=== PATIENT | male | born 1950 | race Caucasian/White ===

== ENCOUNTER → 2018-02-06 | Outpatient (CLI) | payer MEDICARE ==
--- NOTE | 2018-02-06 09:31 | CT ---
EXAMINATION TYPE: CT abdomen pelvis wo con DATE OF EXAM: 02/06/2018 COMPARISON: 03/19/2016 HISTORY: 67-year-old female Kidney stones, renal colic CT DLP: 1096 mGycm. Automated exposure control for dose reduction was used. TECHNIQUE: Contiguous axial scanning of the abdomen and pelvis without IV contrast. Coronal and sagit markus reconstructions performed. FINDINGS: Heart normal size without pericardial effusion. Coronary vessel calcifications are present and are re markable for coronary artery disease. Noncontrast appearance of the liver, gallbladder, adrenal glands, spleen with a inferior splenule, an d pancreas show no gross abnormality. Multiple cysts redemonstrated within the right kidney. 3 dominant cysts are present measuring up to 4 .9 cm and show variable slight increase in size previously measuring up to 4.0 cm. Additional smaller cysts are present. Approximately 18 nonobstructing calculi are present on the right measuring up to 1.4 cm. Approximately 12 nonobstructing calculi on the left measuring up to 5 mm. No hydronephrosis or suspicious ureteral calculus. Small fatty umbilical hernia. No mesenteric or retroperitoneal lymphadenopathy. No dilated small bowel, free fluid, or free air. Normal appendix. Mild overall stool burden. Left hemicolonic diverticulosis, greatest in the sigmoid colon. No pericolonic inflammatory changes. Prostate gland measures 4.3 cm wide. No abnormal fluid collection in the pelvis or pelvic lymphadenop athy. Bones: Mild degenerative changes at the hips and SI joints. 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 IMPRESSION: 1. Bilateral nonobstructing renal calculi measuring up to 1.4 cm on the right and 5 mm on the left. 2. No hydronephrosis or obstructing ureteral calculus seen. 3. Multiple benign renal cysts measuring up to 4.9 cm showing variable slight increase in size as co mpared to 2016. 4. Distal colonic diverticulosis and tiny fatty umbilical hernia.
== END ==
LOC: RADCTMAIN 08:46
PROVIDERS: ATTEND Urology
DX: N20.0 Calculus of kidney (principal); N28.1 Cyst of kidney, acquired; K57.30 Diverticulosis of large intestine without perforation or abscess without bleeding
CPT/HCPCS: 74176

== ENCOUNTER → 2018-04-12 | Outpatient (CLI) | payer MEDICARE ==
--- NOTE | 2018-04-12 12:02 | XR ---
EXAMINATION TYPE: XR chest 2V DATE OF EXAM: 04/12/2018 COMPARISON: None HISTORY: 67-year-old male presurgical testing TECHNIQUE: Frontal and lateral views FINDINGS: Heart normal size. Aorta and pulmonary vasculature are within normal limits. No consolidation or pleu ral effusion. Mild endplate spondylosis lower thoracic spine. IMPRESSION: No acute cardiopulmonary process.
[2018-04-12 12:50] LABS: Basophils % (A) 1 %; Eosinophils # (A) 0.2 k/uL (0-0.7); Eosinophils % (A) 3 %; HGB 15.5 gm/dL (13.0-17.5); Lymphocytes # (A) 1.4 k/uL (1.0-4.8); Lymphocytes % (A) 23 %; MCV 91.1 fL (80.0-100.0); Mean Platelet Volume 6.5; Monocytes # (A) 0.4 k/uL (0-1.0); Monocytes % (A) 6 %; Neutrophils # (A) 4.2 k/uL (1.3-7.7); Neutrophils % (A) 66 %; Platelet Count 204 k/uL (150-450); RBC 5.16 m/uL (4.30-5.90); WBC 6.4 k/uL (3.8-10.6)
[2018-04-12 12:59] LABS: Albumin 4.1 g/dL (3.5-5.0); Calcium 9.4 mg/dL (8.4-10.2); Potassium 4.4 mmol/L (3.5-5.1); Total Bilirubin 0.4 mg/dL (0.2-1.3); Total Protein 6.8 g/dL (6.3-8.2)
[2018-04-12 13:02] LABS: Appearance,Urine Clear (Clear); Bilirubin,Urine Negative (Negative); Blood,Urine Small (Negative); Color,Urine Yellow; Glucose,Urine (UA) Negative (Negative); Ketones,Urine Negative (Negative); Leukocyte Esterase,Urine Negative (Negative); Mucus,Urine Rare /hpf; Nitrite,Urine Negative (Negative); Protein,Urine 1+ (Negative); RBC,Urine 18 /hpf (0-5); Specific Gravity,Urine 1.014 (1.001-1.035); Urobilinogen,Urine <2.0 mg/dL (<2.0); WBC,Urine 1 /hpf (0-5)
== END ==
LOC: LABPAT 11:27
PROVIDERS: ATTEND Urology
DX: Z01.818 Encounter for other preprocedural examination (principal); Z01.812 Encounter for preprocedural laboratory examination; I10 Essential (primary) hypertension; N20.0 Calculus of kidney; R07.9 Chest pain, unspecified; R31.29 Other microscopic hematuria
CPT/HCPCS: 36415; 71046; 80053; 81001; 85025; 86850; 86900; 86901; 87086; 93005

== ENCOUNTER 2018-04-19 06:47 | Inpatient (IN) | payer MEDICARE ==
[2018-04-13 14:47] VITALS: BMI 38.2
--- NOTE | 2018-04-18 19:00 | P.GSHP ---
History of Present Illness H&P Date: 04/18/18 67 yo male with a histroy of stones He has a large volume of stones inthe right kidney He comes for a right pcnl The risks , complications and alternatives have been discussed including failure to remove all the stones, injury to the kidney and adjacent organs. - Constitutional Constitutional: Reports chronic pain - Genitourinary (Male) Genitourinary: Reports as per HPI Past Medical History Past Medical History: CVA/TIA, Hyperlipidemia, Hypertension Additional Past Medical History / Comment(s): kidney stones TIA 1999 History of Any Multi-Drug Resistant Organisms: None Reported Past Surgical History: Hernia Repair, Joint Replacement Additional Past Surgical History / Comment(s): RIGHT Knee replacement, MANY LITHOTRIPSIES Past Anesthesia/Blood Transfusion Reactions: Previous Problems w/ Anesthesia Additional Past Anesthesia/Blood Transfusion Reaction / Comment(s): WOKE UP DURING A COUPLE SURGERIES Smoking Status: Former smoker Medications and Allergies Home Medications Medication Instructions Recorded Confirmed Type Clopidogrel [Plavix] 75 mg PO DAILY 03/19/16 04/13/18 History HYDROcodone/APAP 5-325MG [[place] 1 - 2 tab PO Q6HR PRN #14 tab 03/19/16 04/13/18 Rx 5-325] Tamsulosin HCl [Flomax] 0.4 mg PO DAILY #7 cap.er.24h 03/19/16 04/13/18 Rx Zolpidem [Ambien] 10 mg PO HS PRN 03/19/16 04/13/18 History amLODIPine [Norvasc] 10 mg PO DAILY 03/19/16 04/13/18 History Doxazosin [Cardura] 4 mg PO DAILY 04/13/18 04/13/18 History Methylphenidate HCl [Ritalin] 10 mg PO DAILY 04/13/18 04/13/18 History Allergies Allergy/AdvReac Type Severity Reaction Status Date / Time No Known Allergies Allergy Verified 04/13/18 14:35 Surgical - Exam - General well developed, well nourished, no distress - Eyes PERRL - ENT no hearing loss - Neck no masses, trachea midline - Respiratory normal expansion, normal respiratory effort - Cardiovascular Rhythm: regular - Abdomen Abdomen: soft, non tender - Genitourinary normal penis with no external lesions, testicles present - Integumentary no rash, no growths - Neurologic normal coordination, normal sensation - Musculoskeletal normal gait, normal posture - Psychiatric oriented to time, oriented to person, oriented to place, speech is normal, memory intact Results - Imaging CT scan - abdomen: report reviewed, image reviewed CT scan - pelvis: report reviewed, image reviewed Assessment and Plan Assessment: Impression: Right renal stones, large Plan: Right PCNL
[~2018-04-19 06:47] MED LIST: DEXAMETHASONE SOD PHOSPHATE 10 MG/ML 1 ML VIAL IV ONE; LIDOCAINE 1% 20 ML VIAL (10MG/ML) FOR IV START INTRADERMA PRN; MIDAZOLAM 2 MG/2 ML VIAL IV PRN; ONDANSETRON 4 MG/2 ML VIAL IVP ONE; SCOPOLAMINE 1.5MG/72HR PATCH TRANSDERM ONE; ceFAZolin IN SWFI 2 GM/20 ML SYRINGE IVP ONE
--- NOTE | 2018-04-19 07:13 | XR ---
EXAMINATION TYPE: XR KUB DATE OF EXAM: 04/19/2018 7:09 AM CLINICAL HISTORY: Right-sided nephrolithiasis TECHNIQUE: Single supine KUB image of the abdomen is obtained. COMPARISON: None. FINDINGS: There are multiple bilateral renal calculi seen. The largest on the right measures 1.7 cm a nd the largest on the left measures 9 mm. There are at least additional 10 calculi on the right and 7 calculi on the left. No dilated bowel. Osseous structures are grossly intact. IMPRESSION: Bilateral renal calculi, overall at least 11 on the right and 8 on the left.
[2018-04-19] MEDS: LACTATED RINGERS 1,000 ML IV SCH (07:49)
[2018-04-19] MEDS ORDERED: SUCCINYLCHOLINE CHLORIDE 100 MG/5 ML SYR IV ONE (09:25)
[2018-04-19] MEDS ORDERED: PROPOFOL 10 MG/ML 20 ML VIAL IV ONE (09:25)
[2018-04-19] MEDS ORDERED: ROCURONIUM BROMIDE 10 MG/ML 10 ML VIAL IV ONE (09:25)
[2018-04-19] MEDS ORDERED: GLYCOPYRROLATE 0.2 MG/ML 2 ML VIAL ONE (09:25)
[2018-04-19] MEDS ORDERED: NEOSTIGMINE 1 MG/ML 10 ML VIAL ONE (09:25)
[2018-04-19] MEDS ORDERED: ePHEDrine SULFATE/0.9% NACL/PF 50 MG/5 ML SYRINGE IV ONE (09:25)
[2018-04-19] MEDS ORDERED: MIDAZOLAM 2 MG/2 ML VIAL ONE (09:25)
[2018-04-19] MEDS ORDERED: fentaNYL (PF) 50 MCG/ML 2 ML AMP ONE (09:25)
[2018-04-19] MEDS ORDERED: LIDOCAINE 1% INJ 10MG/ML (20 ML MDV) ONE (09:25)
[2018-04-19] MEDS ORDERED: IOPAMIDOL-370 50ML BTL MISCELLANE ONE (09:44)
[2018-04-19] MEDS ORDERED: ACETAMINOPHEN TAB 325 MG TAB PO PRN (11:17)
[2018-04-19] MEDS ORDERED: ONDANSETRON 4 MG/2 ML VIAL IVP PRN (11:17)
[2018-04-19] MEDS ORDERED: MAG HYDROX/AL HYDROX/SIMETH 30 ML CUP PO PRN (11:17)
[2018-04-19] MEDS ORDERED: NALOXONE 0.4 MG/ML 1 ML VIAL IV PRN (11:18)
--- NOTE | 2018-04-19 11:24 | P.OP ---
Date of Procedure: 04/19/18 Preoperative Diagnosis: Right renal calculi, large Postoperative Diagnosis: Same Procedure(s) Performed: Cystoscopy, placement of right occluding balloon catheter, percutaneous nephrostomy (Dr. gramajo), percutaneous nephrostolithotomy with ultrasound, placement of 12 J nephrostomy tube Anesthesia: ABRAM Surgeon: Pro Miguel Estimated Blood Loss (ml): 100 Pathology: other (Stone) Condition: stable Disposition: PACU Indications for Procedure: The patient is 67. He has a large volume of stone in his right kidney. It is over 2 cm. He is having pain with this. We discussed treatment options. He comes for percutaneous nephrostolithotomy. Description of Procedure: The patient is brought to the operating suite. On the transport gurney he is given a successful general endotracheal anesthesia. Rolls were placed under his hips, he's placed in a frog leg position, a sterile prep and drape was administered. Cystoscopy with a Foroblique lens and 22-[place] sheath identifies a normal urethra. The prostate is not obstructing. The ureters are normal. The right ureteral orifice is intubated with a 5-[place] occluding balloon catheter that is passed up into the renal pelvis. The cystoscope was removed. A 16-[place] Moraes catheters introduced and secured to the ureteral catheter. The patient is then placed in a prone position on the operating table with extensive care to airways extremities and neck. Dr. Gramajo of radiology performed percutaneous access to the right lower pole calyx with the large stone present. Prior to this a sterile prep and drape had been administered. I then dilate the tract to 30-[place]. I introduced the rigid scope into the collecting system. The large stone is identified and broken up into smaller pieces with the ultrasonic lithotripter. I then pass a flexible nephroscope throughout the collecting system down the ureter and basketed several smaller fragments. I also basket a couple of non fragmented stones. He has a significant amount of papillary calcifications. At the end of the procedure there is no remaining stone fluoroscopically or endoscopically. Over the working wire a 12-[place] J nephrostomy tube was placed and secured to the skin. The working sheath is removed. The safety wires removed. The ureteral catheters removed. The patient is awakened and returned recovery room in good condition. Blood loss is approximately 100 mL.
--- NOTE | 2018-04-19 11:47 | FL ---
EXAMINATION TYPE: FL Perc Nephrostomy New Access DATE OF EXAM: 04/19/2018 COMPARISON: NONE HISTORY: Right renal stone Procedure had been discussed with the patient by Dr. Miguel, risks, benefits, alternatives, were dis cussed and any questions were answered. Informed consent was obtained. The patient was in a semipro ne position prepped and draped on the OR table in the usual sterile fashion. Utilizing a 15 cm lengt h [place] needle a single pass was made into a lower pole posterior calyx under fluoroscopic guidance. An 0.018 guidewire is passed through the needle and there was placement of a 6-[place] catheter sheat h system. There was conversion to a 0.035 system was performed with passage of a guidewire into the ureter utilizing a directional catheter. A second safety wire was placed. Remaining portion of pro cedure performed by . Approximately 10 minutes and 38 of fluoroscopy was provided. No imag es submitted. IMPRESSION: 1. Successful intraoperative right nephrostomy prior to nephrolithotomy.
[2018-04-19] MEDS: HYDROmorphone 0.5 MG/0.5 ML SYRINGE IVP PRN ×4 (11:55→12:05)
[2018-04-19] MEDS ORDERED: MEPERIDINE 50 MG/ML SYRINGE IVP ONE (12:16)
[2018-04-19] MEDS ORDERED: fentaNYL (PF) 50 MCG/ML 2 ML AMP IVP ONE (12:30)
[2018-04-19] MEDS ORDERED: SODIUM CHLORIDE 0.9% 1,000 ML IV ONE (14:47)
[2018-04-19] MEDS: DEXTROSE 5%-0.45% NACL 1,000 ML IV SCH (15:12)
[2018-04-19] MEDS: KETOROLAC 30 MG/ML 1 ML VIAL IVP SCH ×2 (15:16→17:27)
[2018-04-19] MEDS: HYDROmorphone PCA 5 MG/25 ML SYRINGE IV PRN (16:44)
[2018-04-20] MEDS: DEXTROSE 5%-0.45% NACL 1,000 ML IV SCH ×2 (00:19→07:20)
[2018-04-20] MEDS: KETOROLAC 30 MG/ML 1 ML VIAL IVP SCH ×3 (00:19→11:43)
[2018-04-20 01:45] VITALS: PULSE 69
[2018-04-20] MEDS: HYDROmorphone PCA 5 MG/25 ML SYRINGE IV PRN (03:38)
[2018-04-20] MEDS: LACTATED RINGERS 1,000 ML IV SCH (07:19)
[2018-04-20 08:43] VITALS: BP 123/66; RESP 18; TEMP 97.7
[2018-04-20] MEDS ORDERED: amLODIPine 10 MG TAB PO SCH (09:00)
[2018-04-20] MEDS ORDERED: METHYLPHENIDATE HCL 10 MG TAB PO SCH (09:00)
[2018-04-20] MEDS ORDERED: TAMSULOSIN 0.4 MG CAP.ER.24H PO SCH (09:00)
[2018-04-20] MEDS ORDERED: DOXAZOSIN 4 MG TAB PO SCH (09:00)
--- NOTE | 2018-04-20 12:03 | P.DS ---
Providers Date of admission: 04/19/18 06:47 Attending physician: Pro Miguel Primary care physician: Isauro [facility] Course: The patient was admitted yesterday 04/19/2018 for a right percutaneous nephrostolithotomy. He underwent this without difficulty. Postoperatively the patient did well. The urine is clearing nicely. He is having minimal discomfort. He is ready to be discharged home. The Moraes catheter and IV will be removed. He'll be discharged home with the nephrostomy tube. He'll follow- up in the office 04/24/2018 for nephrostomy tube removal. He has [place] at home. Postoperative instructions been given. Diet is regular. Condition is good. Patient Condition at Discharge: Good Plan - Discharge Summary Discharge Rx Participant: No New Discharge Prescriptions: No Action Zolpidem [Ambien] 10 mg PO HS PRN PRN Reason: Insomnia Clopidogrel [Plavix] 75 mg PO DAILY amLODIPine [Norvasc] 10 mg PO DAILY HYDROcodone/APAP 5-325MG [[place] 5-325] 1 - 2 tab PO Q6HR PRN #14 tab PRN Reason: Analgesia Tamsulosin HCl [Flomax] 0.4 mg PO DAILY #7 cap.er.24h Doxazosin [Cardura] 4 mg PO DAILY Methylphenidate HCl [Ritalin] 10 mg PO DAILY Discharge Medication List Clopidogrel [Plavix] 75 mg PO DAILY 03/19/16 [History] HYDROcodone/APAP 5-325MG [[place] 5-325] 1 - 2 tab PO Q6HR PRN #14 tab 03/19/16 [ Rx] Tamsulosin HCl [Flomax] 0.4 mg PO DAILY #7 cap.er.24h 03/19/16 [Rx] Zolpidem [Ambien] 10 mg PO HS PRN 03/19/16 [History] amLODIPine [Norvasc] 10 mg PO DAILY 03/19/16 [History] Doxazosin [Cardura] 4 mg PO DAILY 04/13/18 [History] Methylphenidate HCl [Ritalin] 10 mg PO DAILY 04/13/18 [History] Follow up Appointment(s)/Referral(s): Pro Miguel MD [STAFF PHYSICIAN] - 04/24/18 Activity/Diet/Wound Care/Special Instructions: Home with nephrostomy tube Discharge Disposition: HOME SELF-CARE
== END 2018-04-20 14:35 | disposition home or self-care (01) | DRG 661 ==
LOC: 2ORMAIN 06:47 → 4SSUR 14:22
PROVIDERS: ADMIT Urology; ATTEND Urology
PROC: 0TC08ZZ Extirpation of Matter from Right Kidney, Via Natural or Artificial Opening Endoscopic (ICD-10-PCS; 2018-04-19)
PROC: 0T9030Z Drainage of Right Kidney with Drainage Device, Percutaneous Approach (ICD-10-PCS; principal; 2018-04-19 08:45)
DX: N20.0 Calculus of kidney (principal); E78.5 Hyperlipidemia, unspecified; I10 Essential (primary) hypertension; Z79.02 Long term (current) use of antithrombotics/antiplatelets; Z79.899 Other long term (current) drug therapy; Z86.73 Personal history of transient ischemic attack (TIA), and cerebral infarction without residual deficits; Z87.442 Personal history of urinary calculi; Z87.891 Personal history of nicotine dependence; Z96.651 Presence of right artificial knee joint; Z79.891 Long term (current) use of opiate analgesic
CPT/HCPCS: 50432; 74018; 82365; 86850; 86900; 86901

== ENCOUNTER 2019-10-15 13:45 | Inpatient (IN) | payer MEDICARE, BC ==
--- NOTE | 2019-10-15 14:22 | ED ---
General Adult HPI - General Chief complaint: Chest Pain Stated complaint: Chest Pain Time Seen by Provider: 10/15/19 13:58 Source: patient Mode of arrival: wheelchair Limitations: no limitations - History of Present Illness Initial comments: Dictation was produced using [employer] dictation software. please excuse any grammatical, word or spelling errors. This patient was cared for during a federal and state declared state of emergency secondary to Covid 19 Chief Complaint: 69-year-old male with past medical history dyslipidemia and hy pertension kidney stones presents with chest pain History of Present Illness: 69-year-old male who denies any cardiac history. He states that since yesterday's been having random chest pain that would occur throughout the day. He describes the pain as a pressure-like sensation to the anterior chest. Sometimes it would go from left to right chest. Denies any radiation to the chart shoulders. Is not sure if there is any associated diaphoresis or clamminess. Patient denies any history of heart attacks. Patient feels well at this time. He is not aware of any exacerbating or mitigating factors. No radiation to the back. The numbness tingling paresthesias to the arms or legs. Denies any worsening symptoms with deep inspiration. The ROS documented in this emergency department record has been reviewed and confirmed by me. Those systems with pertinent positive or negative responses have been documented in the HPI. All other systems are other negative and/or noncontributory. PHYSICAL EXAM: General Impression: Alert and oriented x3, not in acute distress HEENT: Normocephalic atraumatic, extra-ocular movements intact, pupils equal and reactive to light bilaterally, mucous membranes moist. Cardiovascular: Heart regular rate and rhythm Chest: Able to complete full sentences, no retractions, no tachypnea Abdomen: abdomen soft, non-tender, non-distended, no organomegaly Musculoskeletal: Pulses present and equal in all extremities, no peripheral edema Motor: no focal deficits noted Neurological: CN II-XII grossly intact, no focal motor or sensory deficits noted Skin: Intact with no visualized rashes Psych: Normal affect and mood ED course: 69-year-old male presents with atypical chest pain typical features. As upon arrival are within acceptable limits. EKG shows no phthisis suggest ischemia or infarction. Does however have Q waves in 3 and aVF Laboratory evaluation obtained. CBC unremarkable. Coag panel is unremarkable. Metabolic panel is unremarkable. Patient has elevated troponin of 0.404. Patient reevaluated bedside is not having any active chest pain at this time. On heparin and given aspirin. Patient be admitted for non-ST segment elevation [place]. Patient will be admitted to Dr. Santamaria who was on-call for Dr. Duarte. Stewart Lopez consulted. EKG interpretation: Ventricular rate 71, normal sinus rhythm. Interval 140, QRS 94, QTC 456. No WI prolongation, no QTC prolongation, no ST or T-wave changes noted. . Overall, this EKG is unremarkable - Related Data Home Medications Medication Instructions Recorded Confirmed Clopidogrel [Plavix] 75 mg PO DAILY 03/19/16 04/19/18 Zolpidem [Ambien] 10 mg PO HS PRN 03/19/16 04/19/18 amLODIPine [Norvasc] 10 mg PO DAILY 03/19/16 04/19/18 Doxazosin [Cardura] 4 mg PO DAILY 04/13/18 04/19/18 Methylphenidate HCl [Ritalin] 10 mg PO DAILY 04/13/18 04/19/18 Previous Rx's Medication Instructions Recorded HYDROcodone/APAP 5-325MG [[place] 1 - 2 tab PO Q6HR PRN #14 tab 03/19/16 5-325] Tamsulosin HCl [Flomax] 0.4 mg PO DAILY #7 cap.er.24h 03/19/16 Allergies Allergy/AdvReac Type Severity Reaction Status Date / Time No Known Allergies Allergy Verified 10/15/19 13:45 Review of Systems ROS Statement: Those systems with pertinent positive or pertinent negative responses have been documented in the HPI. ROS Other: All systems not noted in ROS Statement are negative. Past Medical History Past Medical History: Hyperlipidemia, Hypertension Additional Past Medical History / Comment(s): kidney stones History of Any Multi-Drug Resistant Organisms: None Reported Past Surgical History: Hernia Repair, Orthopedic Surgery Additional Past Surgical History / Comment(s): Bilateral Knee replacement Past Anesthesia/Blood Transfusion Reactions: Previous Problems w/ Anesthesia Additional Past Anesthesia/Blood Transfusion Reaction / Comment(s): WOKE UP DURING A COUPLE SURGERIES Past Psychological History: No Psychological Hx Reported Smoking Status: Former smoker Past Alcohol Use History: Occasional Past Drug Use History: None Reported - Past Family History Mother History Unknown: Yes General Exam Limitations: no limitations Course Vital Signs 10/15/19 10/15/19 10/15/19 13:45 14:24 15:18 Temperature 98.0 F Pulse Rate 84 69 62 Respiratory 16 18 16 Rate Blood Pressure 143/98 175/93 121/80 O2 Sat by Pulse 95 95 94 L Oximetry Medical Decision Making - Lab Data Result diagrams: 10/15/19 14:12 10/15/19 14:12 Lab Results 10/15/19 10/15/19 10/15/19 Range/Units 14:12 14:12 14:12 WBC 6.5 (3.8-10.6) k/uL RBC 5.07 (4.30-5.90) m/uL Hgb 16.4 (13.0-17.5) gm/dL Hct 47.4 (39.0-53.0) % MCV 93.6 (80.0-100.0) fL MCH 32.3 (25.0-35.0) pg MCHC 34.5 (31.0-37.0) g/dL RDW 12.5 (11.5-15.5) % Plt Count 211 (150-450) k/uL Neutrophils % 63 % Lymphocytes % 26 % Monocytes % 6 % Eosinophils % 2 % Basophils % 1 % Neutrophils # 4.1 (1.3-7.7) k/uL Lymphocytes # 1.7 (1.0-4.8) k/uL Monocytes # 0.4 (0-1.0) k/uL Eosinophils # 0.2 (0-0.7) k/uL Basophils # 0.0 (0-0.2) k/uL PT 10.1 (9.0-12.0) sec INR 1.0 (<1.2) APTT 24.7 (22.0-30.0) sec Sodium 138 (137-145) mmol/L Potassium 4.2 (3.5-5.1) mmol/L Chloride 102 (98-107) mmol/L Carbon Dioxide 28 (22-30) mmol/L Anion Gap 8 mmol/L BUN 20 (9-20) mg/dL Creatinine 1.11 (0.66-1.25) mg/dL Est GFR (CKD-EPI)AfAm 79 (>60 ml/min/1.73 sqM) Est GFR (CKD-EPI)NonAf 69 (>60 ml/min/1.73 sqM) Glucose 128 H (74-99) mg/dL Calcium 10.2 (8.4-10.2) mg/dL Magnesium 2.0 (1.6-2.3) mg/dL Total Bilirubin 0.6 (0.2-1.3) mg/dL AST 26 (17-59) U/L ALT 19 (4-49) U/L Alkaline Phosphatase 83 (38-126) U/L Troponin I (0.000-0.034) ng/mL Total Protein 7.2 (6.3-8.2) g/dL Albumin 4.8 (3.5-5.0) g/dL 10/15/19 Range/Units 14:12 WBC (3.8-10.6) k/uL RBC (4.30-5.90) m/uL Hgb (13.0-17.5) gm/dL Hct (39.0-53.0) % MCV (80.0-100.0) fL MCH (25.0-35.0) pg MCHC (31.0-37.0) g/dL RDW (11.5-15.5) % Plt Count (150-450) k/uL Neutrophils % % Lymphocytes % % Monocytes % % Eosinophils % % Basophils % % Neutrophils # (1.3-7.7) k/uL Lymphocytes # (1.0-4.8) k/uL Monocytes # (0-1.0) k/uL Eosinophils # (0-0.7) k/uL Basophils # (0-0.2) k/uL PT (9.0-12.0) sec INR (<1.2) APTT (22.0-30.0) sec Sodium (137-145) mmol/L Potassium (3.5-5.1) mmol/L Chloride (98-107) mmol/L Carbon Dioxide (22-30) mmol/L Anion Gap mmol/L BUN (9-20) mg/dL Creatinine (0.66-1.25) mg/dL Est GFR (CKD-EPI)AfAm (>60 ml/min/1.73 sqM) Est GFR (CKD-EPI)NonAf (>60 ml/min/1.73 sqM) Glucose (74-99) mg/dL Calcium (8.4-10.2) mg/dL Magnesium (1.6-2.3) mg/dL Total Bilirubin (0.2-1.3) mg/dL AST (17-59) U/L ALT (4-49) U/L Alkaline Phosphatase (38-126) U/L Troponin I 0.404 H* (0.000-0.034) ng/mL Total Protein (6.3-8.2) g/dL Albumin (3.5-5.0) g/dL Disposition Clinical Impression: NSTEMI (non-ST elevated myocardial infarction) Disposition: ADMITTED IP TO THIS HOSP Condition: Fair Referrals: Isauro Duarte MD [Primary Care Provider] - 1-2 days Decision Time: 15:35
--- NOTE | 2019-10-15 14:46 | XR ---
EXAMINATION TYPE: XR chest 2V DATE OF EXAM: 10/15/2019 COMPARISON: 04/12/2018 TECHNIQUE: PA and lateral views submitted. HISTORY: Chest pain FINDINGS: The lungs are clear and there is no pneumothorax, pleural effusion, or focal pneumonia. Hypertrophi c and degenerative changes spine. Arthropathy of the shoulders. No overt failure. Heart size normal. Calcification overlying the right humeral head. IMPRESSION: 1. No acute process.
[2019-10-15 14:50] LABS: Basophils % (A) 1 %; Eosinophils # (A) 0.2 k/uL (0-0.7); Eosinophils % (A) 2 %; HCT 47.4 % (39.0-53.0); HGB 16.4 gm/dL (13.0-17.5); Lymphocytes # (A) 1.7 k/uL (1.0-4.8); Lymphocytes % (A) 26 %; MCH 32.3 pg (25.0-35.0); MCHC 34.5 g/dL (31.0-37.0); MCV 93.6 fL (80.0-100.0); Mean Platelet Volume 6.9; Monocytes # (A) 0.4 k/uL (0-1.0); Monocytes % (A) 6 %; Neutrophils # (A) 4.1 k/uL (1.3-7.7); Neutrophils % (A) 63 %; Platelet Count 211 k/uL (150-450); RBC 5.07 m/uL (4.30-5.90); RDW 12.5 % (11.5-15.5); WBC 6.5 k/uL (3.8-10.6)
[2019-10-15 14:56] LABS: Albumin 4.8 g/dL (3.5-5.0); Calcium 10.2 mg/dL (8.4-10.2); Potassium 4.2 mmol/L (3.5-5.1); Total Bilirubin 0.6 mg/dL (0.2-1.3); Total Protein 7.2 g/dL (6.3-8.2)
[2019-10-15 15:13] LABS: Partial Thromboplastin Time 24.7 sec (22.0-30.0); Prothrombin Time 10.1 sec (9.0-12.0)
[2019-10-15] MEDS ORDERED: ASPIRIN 81 MG PO STA (15:31)
[2019-10-15] MEDS ORDERED: HEPARIN SODIUM,PORCINE 5,000 UNIT/ML 1 ML VIAL IV ONE (15:31)
[2019-10-15] MEDS ORDERED: HEPARIN SODIUM,PORCINE 5,000 UNIT/ML 1 ML VIAL IV PRN (15:31)
[2019-10-15] MEDS: HEPARIN SOD,PORK IN 0.45% NACL 25,000 UNIT in 0.45% NACL 1 250ML.BAG IV SCH (15:43)
[2019-10-15] MEDS ORDERED: ZOLPIDEM 10 MG TAB PO SCH (21:00)
[2019-10-15] MEDS ORDERED: HYDROcodone/APAP 5-325MG 1 EACH TAB PO PRN (23:02)
--- NOTE | 2019-10-15 23:02 | P.HPIM ---
History of Present Illness H&P Date: 10/15/19 Chief Complaint: Non-ST IL, recurrent chest pain, hypertension and previous history of TIA 69-year-old mildly overweight male one of Dr. Duarte patient with past medical history of TIA, hypertension, hyperlipidemia and recurrent kidney stone who was in the hospital last May [address] Miguel for large kidney stone ended up having nephrostomy successfully with no major complication. Patient otherwise has been doing well on his current medication with no major reaction or side effect. He denies any previous history of CAD or IL. He developed to have midsternal chest pain on and off since yesterday he described his pain as a pressure-like with mild nausea feeling and cold sweat he denies any radiation his symptoms were wrap not associated diaphoresis. Patient now symptoms were wrap on and off through the night he improved slight bit to walk up this morning with worsening symptoms associated with mild tingling sensation and numbness in the arm in the feet his symptoms where worsening with inspiration and exertion. Patient ended up coming to demurs department at [facility] where was seen and evaluated his EKG showed inferior lead Q waves along with lateral leads slight abnormality his troponin was elevated patient was diagnosed with non-ST IL. Patient was started on heparin drip cardiology consultation and order an echo patient will need most likely go for heart cath in the next 24 hours. Review of Systems CONSTITUTIONAL: Well-developed no acute respiratory distress. EYES: No icterus sclerae, no conjunctivitis. EARS, NOSE, MOUTH, THROAT, and FACE: No sore throat, lymphadenopathy, carotid bruits or deformity. RESPIRATORY: No SOB cough or wheezes. CARDIOVASCULAR: Chest pain with mild palpitation and angina. GASTROINTESTINAL: No Abd pain, Nausea or vomiting, no Diarrhea or constipation, No GI Bleed, no distention or masses. GENITOURINARY: Negative for Hematuria or UTI, no kidney stones. INTEGUMENT/BREAST: Negative for any muscular injury with mild osteoarthritis.. HEMATOLOGIC/LYMPHATIC: Negative for bleed or purpura. MUSCULOSKELTAL: Negative for Myalgia or arthralgia. NEURLOGICAL: No LOC, Sz or syncope, blurred vision dizziness or abnormality.. BEHAVIORAL/PSYCH: Negative. ENDOCRINE: Negative. Past Medical History Past Medical History: Hyperlipidemia, Hypertension Additional Past Medical History / Comment(s): kidney stones History of Any Multi-Drug Resistant Organisms: None Reported Past Surgical History: Hernia Repair, Orthopedic Surgery Additional Past Surgical History / Comment(s): Bilateral Knee replacement Past Anesthesia/Blood Transfusion Reactions: Previous Problems w/ Anesthesia Additional Past Anesthesia/Blood Transfusion Reaction / Comment(s): WOKE UP DURING A COUPLE SURGERIES Past Psychological History: No Psychological Hx Reported Smoking Status: Former smoker Past Alcohol Use History: Occasional Additional Past Alcohol Use History / Comment(s): QUIT SMOKING 1985, SMOKED ONE AND 1/2PPD FOR APPROX 6 YRS Past Drug Use History: None Reported - Past Family History Mother History Unknown: Yes Medications and Allergies Home Medications Medication Instructions Recorded Confirmed Type Clopidogrel [Plavix] 75 mg PO HS 03/19/16 10/15/19 History Zolpidem [Ambien] 10 mg PO HS PRN 03/19/16 10/15/19 History Doxazosin [Cardura] 4 mg PO HS 04/13/18 10/15/19 History Methylphenidate HCl [Ritalin] 10 mg PO DAILY 04/13/18 10/15/19 History ALPRAZolam [ALPRAZolam XR] 2 mg PO DAILY@1800 10/15/19 10/15/19 History ALPRAZolam [Xanax] 1 mg PO QAM 10/15/19 10/15/19 History Atorvastatin [Lipitor] 10 mg PO HS 10/15/19 10/15/19 History Citalopram Hydrobromide 20 mg PO HS 10/15/19 10/15/19 History [Citalopram HBr] HYDROcodone/APAP 5-325MG [[place] 1 tab PO Q6HR PRN 10/15/19 10/15/19 History 5-325] Losartan Potassium [Cozaar] 50 mg PO DAILY 10/15/19 10/15/19 History Allergies Allergy/AdvReac Type Severity Reaction Status Date / Time No Known Allergies Allergy Verified 10/15/19 16:50 Physical Exam Vitals: Vital Signs Temp Pulse Pulse Pulse Resp BP BP 10/15/19 20:31 60 59 L 16 10/15/19 20:30 97.8 F 59 L 16 156/93 10/15/19 17:15 97.7 F 60 60 18 147/88 10/15/19 16:00 61 18 123/83 10/15/19 15:18 62 16 121/80 10/15/19 14:24 69 18 175/93 10/15/19 13:45 98.0 F 84 16 143/98 Pulse Ox 10/15/19 20:31 10/15/19 20:30 96 10/15/19 17:15 97 10/15/19 16:00 94 L 10/15/19 15:18 94 L 10/15/19 14:24 95 10/15/19 13:45 95 Intake and Output 10/15/19 10/15/19 10/15/19 06:59 14:59 22:59 Intake Total 240 Balance 240 Intake: Oral 240 Other: Voiding Method Toilet # Voids 0 Weight 99.79 kg 99.79 kg General Appearance: Alert, cooperative, no distress, appears stated age. Neck HEENT: Supple, no lymphadenopathy, no thyroid enlargement, no carotid bruits. Lungs: Clear to auscultation without crackles or wheezes no rhonchi, no deformity. Chest Wall: Chest wall normal expansion with deep inspiration no tenderness and no deformity was found on exam, no costochondral pain or discomfort. Heart: Regular rate and rhythm, S1, S2 normal, no murmur, rub or gallop. Back: Symmetric, no curvature, ROM normal, no CVA tenderness. Abdomen: Soft, non-tender, bowel sounds active all four quadrants, no masses, no organomegaly. Extremities: Extremities normal, atraumatic, no cyanosis or edema. Pulses: 2+ and symmetric. Skin: Skin color, texture, tugor normal, no rashes or lesions. Neurologic: Alert oriented x3 cranial nerves II through XII intact, no motor deficit, no abnormal balance or gait. Results CBC & Chem 7: 10/15/19 14:12 10/15/19 14:12 Labs: Abnormal Lab Results - Last 24 Hours (Table) 10/15/19 10/15/19 10/15/19 Range/Units 14:12 14:12 17:17 APTT (22.0-30.0) sec Glucose 128 H (74-99) mg/dL Troponin I 0.404 H* 0.761 H* (0.000-0.034) ng/mL 10/15/19 Range/Units 21:30 APTT 44.2 H (22.0-30.0) sec Glucose (74-99) mg/dL Troponin I (0.000-0.034) ng/mL Thrombosis Risk Factor Assmnt - DVT/VTE Prophylaxis DVT/VTE Prophylaxis: Pharmacologic Prophylaxis ordered, Mechanical Prophylaxis ordered - Choose All That Apply Any of the Below Risk Factors Present?: No Other Risk Factors: Yes Each Risk Factor Represents 2 Points: Age 61-74 years Other congenital or acquired thrombophilia - If yes, enter type in comment: No Thrombosis Risk Factor Assessment Total Risk Factor Score: 2 Thrombosis Risk Factor Assessment Level: Low Risk Assessment and Plan Assessment: 1 non-ST IL: Patient was heparinize continue nitro consult cardiology admit patient to the hospital continue troponin 3 ration will stay nothing by mouth we will order an echocardiogram and patient most likely need to go for heart cath in the next 24 hours. 2 hypertension: Has been well controlled on amlodipine and Cardura continue both medication. 3 previous history of TIA: Patient has been on Plavix and baby aspirin the past. 4 hyperglycemia: Control continue to watch blood sugar while he isn't hospital. 5 BPH: Continue Cardura. 6 hyperlipidemia: Lipid panel will be done for tomorrow morning patient be started on statin. 7 DVT prophylaxis: Patient will continue on heparin drip. 8 GI prophylaxis: Patient be continue on Pepcid 20 mg daily. CODE STATUS: Full code. Admit patient to inpatient status more than 2 night stay.
[2019-10-16] MEDS: NITROGLYCERIN SL TABS 0.4 MG TAB SUBLINGUAL PRN ×5 (08:03→13:38)
[2019-10-16 08:56] LABS: Cholesterol 190 mg/dL (<200); HDL Cholesterol 59 mg/dL (40-60); LDL Cholesterol,Calculated 120 mg/dL (0-99); Triglycerides 56 mg/dL (<150)
[2019-10-16] MEDS ORDERED: ASPIRIN 325 MG TAB PO SCH (09:00)
[2019-10-16] MEDS ORDERED: ATORVASTATIN 80 MG TAB PO STA (09:05)
[2019-10-16] MEDS ORDERED: ASPIRIN 325 MG TAB PO STA (09:05)
[2019-10-16] MEDS ORDERED: NITROGLYCERIN SL TABS 0.4 MG TAB SUBLINGUAL PRN ×2 (09:05→17:29)
[2019-10-16] MEDS ORDERED: ALPRAZolam 0.5 MG TAB PO PRN (09:05)
[2019-10-16] MEDS ORDERED: SODIUM CHLORIDE 0.9% 1,000 ML in EMPTY BAG 1 BAG IV ONE (09:05)
[2019-10-16] MEDS ORDERED: ALPRAZolam 0.25 MG TAB PO PRN (09:05)
[2019-10-16] MEDS: METOPROLOL SUCCINATE (ER) 25 MG TAB.ER.24H PO SCH (09:19)
[2019-10-16] MEDS: ALPRAZolam 0.5 MG TAB PO SCH (09:20)
[2019-10-16] MEDS: LOSARTAN 50 MG TAB PO SCH (09:20)
[2019-10-16] MEDS: FAMOTIDINE 20 MG TAB PO SCH (09:20)
--- NOTE | 2019-10-16 10:28 | P.CRDCN ---
History of Present Illness Consult date: 10/16/19 Requesting physician: Perico Santamaria Consult reason: chest pain Chief complaint: Chest pain History of present illness: This is a pleasant 69-year-old gentleman with documented history of hy pertension, hyperlipidemia, recurrent kidney stones for which the patient underwent a prior nephrectomy, no prior history of smoking, okay to EtOH, family history of premature coronary artery disease in his father who had his first myocardial infarction in his 50s. Patient presented to the hospital with symptoms of chest tightness, he states that he normally walks up to 4 miles a day, he [place], states that just walking 2 blocks he develop some tightness in his chest. He did stop and have some breakfast, following that he states that the symptoms became considerably worse. He again started walking in the symptoms progressively worse and for this reason he came to the emergency room for further evaluation and treatment. 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 His chest x-ray on presentation here did not reveal any acute process. EKG showed a normal sinus rhythm with inferior Q waves. Blood pressure 126/80, 157/102 at present, heart rate in the 70s, respirations 16. White blood cell count 6.5, hemoglobin 16.4, platelet count 211. Sodium 138, potassium 4.2, BUN 20, creatinine 1.1. Troponin 0.4, 0.7, 3.1. At the time of my examination this morning, patient states he was still experiencing some midsternal chest tightness, a stat EKG was requested as well as a sublingual nitroglycerin. We also ordered a stat echocardiogram with Doppler study be performed and we started the patient on a beta joseline. He is currently on aspirin, statin, and an angiotensin joseline. Patient was advised to undergo cardiac catheterization, the risks and the benefits were explained to the patient in detail and he is willing to proceed. This will be performed this morning by Dr. Rivas. Further recommendations will be based on the findings of this test and patient's overall clinical course. Past Medical History Past Medical History: Hyperlipidemia, Hypertension Additional Past Medical History / Comment(s): kidney stones History of Any Multi-Drug Resistant Organisms: None Reported Past Surgical History: Hernia Repair, Orthopedic Surgery Additional Past Surgical History / Comment(s): Bilateral Knee replacement Past Anesthesia/Blood Transfusion Reactions: Previous Problems w/ Anesthesia Additional Past Anesthesia/Blood Transfusion Reaction / Comment(s): WOKE UP DURING A COUPLE SURGERIES Past Psychological History: No Psychological Hx Reported Smoking Status: Former smoker Past Alcohol Use History: Occasional Additional Past Alcohol Use History / Comment(s): QUIT SMOKING 1985, SMOKED ONE AND 1/2PPD FOR APPROX 6 YRS Past Drug Use History: None Reported - Past Family History Mother History Unknown: Yes Medications and Allergies Home Medications Medication Instructions Recorded Confirmed Type Clopidogrel [Plavix] 75 mg PO HS 03/19/16 10/15/19 History Zolpidem [Ambien] 10 mg PO HS PRN 03/19/16 10/15/19 History Doxazosin [Cardura] 4 mg PO HS 04/13/18 10/15/19 History Methylphenidate HCl [Ritalin] 10 mg PO DAILY 04/13/18 10/15/19 History ALPRAZolam [ALPRAZolam XR] 2 mg PO DAILY@1800 10/15/19 10/15/19 History ALPRAZolam [Xanax] 1 mg PO QAM 10/15/19 10/15/19 History Atorvastatin [Lipitor] 10 mg PO HS 10/15/19 10/15/19 History Citalopram Hydrobromide 20 mg PO HS 10/15/19 10/15/19 History [Citalopram HBr] HYDROcodone/APAP 5-325MG [[place] 1 tab PO Q6HR PRN 10/15/19 10/15/19 History 5-325] Losartan Potassium [Cozaar] 50 mg PO DAILY 10/15/19 10/15/19 History Allergies Allergy/AdvReac Type Severity Reaction Status Date / Time No Known Allergies Allergy Verified 10/15/19 16:50 Physical Exam Vitals: Vital Signs Temp Pulse Pulse Pulse Resp BP BP 10/16/19 04:00 74 16 157/102 10/15/19 23:50 98.3 F 65 16 126/81 10/15/19 20:31 60 59 L 16 10/15/19 20:30 97.8 F 59 L 16 156/93 10/15/19 17:15 97.7 F 60 60 18 147/88 10/15/19 16:00 61 18 123/83 10/15/19 15:18 62 16 121/80 07/06/20 14:24 69 18 175/93 10/15/19 13:45 98.0 F 84 16 143/98 Pulse Ox 10/16/19 04:00 95 10/15/19 23:50 94 L 10/15/19 20:31 10/15/19 20:30 96 10/15/19 17:15 97 10/15/19 16:00 94 L 10/15/19 15:18 94 L 10/15/19 14:24 95 10/15/19 13:45 95 Intake and Output 10/15/19 10/16/19 10/16/19 22:59 06:59 14:59 Intake Total 240 Output Total 400 Balance 240 -400 Intake: Oral 240 Output: Urine 400 Other: Voiding Method Toilet # Voids 0 2 Weight 99.79 kg 98.9 kg PHYSICAL EXAMINATION: GENERAL: 69-year-old gentleman in no acute distress at the time of my examination HEENT: Head is atraumatic, normocephalic. Pupils equal, round. Sclera anicteric. Conjunctiva are clear. Mucous membranes of the mouth are moist. Neck is supple. There is no elevated jugular venous pressure. No carotid bruit is heard. HEART EXAMINATION: Heart S1, S2 normal. No murmur or gallop heard. CHEST EXAMINATION: Lungs are clear to auscultation and precussion. No chest wall tenderness is noted on palpation or with deep breathing. ABDOMEN: Soft, nontender. Bowel sounds are heard. No organomegaly noted. EXTREMITIES: 2+ peripheral pulses with no evidence of peripheral edema and no calf tenderness noted. NEUROLOGIC patient is awake, alert and oriented 3 . . Results 10/15/19 14:12 10/15/19 14:12 Cardiac Enzymes 10/15/19 10/15/19 10/15/19 Range/Units 14:12 14:12 17:17 AST 26 (17-59) U/L Troponin I 0.404 H* 0.761 H* (0.000-0.034) ng/mL 10/15/19 Range/Units 21:30 AST (17-59) U/L Troponin I 3.100 H* (0.000-0.034) ng/mL Coagulation 10/15/19 10/15/19 10/16/19 Range/Units 14:12 21:30 09:37 PT 10.1 (9.0-12.0) sec APTT 24.7 44.2 H 41.6 H (22.0-30.0) sec Lipids 10/16/19 Range/Units 06:03 Triglycerides 56 (<150) mg/dL Cholesterol 190 (<200) mg/dL HDL Cholesterol 59 (40-60) mg/dL CBC 10/15/19 Range/Units 14:12 WBC 6.5 (3.8-10.6) k/uL RBC 5.07 (4.30-5.90) m/uL Hgb 16.4 (13.0-17.5) gm/dL Hct 47.4 (39.0-53.0) % Plt Count 211 (150-450) k/uL Comprehensive Metabolic Panel 10/15/19 Range/Units 14:12 Sodium 138 (137-145) mmol/L Potassium 4.2 (3.5-5.1) mmol/L Chloride 102 (98-107) mmol/L Carbon Dioxide 28 (22-30) mmol/L BUN 20 (9-20) mg/dL Creatinine 1.11 (0.66-1.25) mg/dL Glucose 128 H (74-99) mg/dL Calcium 10.2 (8.4-10.2) mg/dL AST 26 (17-59) U/L ALT 19 (4-49) U/L Alkaline Phosphatase 83 (38-126) U/L Total Protein 7.2 (6.3-8.2) g/dL Albumin 4.8 (3.5-5.0) g/dL Current Medications Generic Name Dose Route Start Last Admin Trade Name Freq PRN Reason Stop Dose Admin Hydrocodone Bitart/Acetaminophen 1 each 10/15/19 23:02 [place] 5-325 PO Q6HR PRN kidney stone pain Alprazolam 0.5 mg 10/16/19 09:00 10/16/19 09:20 Xanax PO 0.5 mg QAM BABATUNDE Administration Alprazolam 0.25 mg 10/16/19 09:05 Xanax PO Q6HR PRN Mild Anxiety Alprazolam 0.5 mg 10/16/19 09:05 Xanax PO Q6HR PRN Moderate Anxiety Aspirin 325 mg 07/08/20 09:00 Aspirin PO DAILY BABATUNDE Atorvastatin Calcium 80 mg 10/17/19 21:00 Lipitor PO HS [facility] Citalopram Hydrobromide 20 mg 10/16/19 21:00 Celexa PO HS [facility] Clopidogrel Bisulfate 75 mg 10/16/19 21:00 Plavix PO HS [facility] Doxazosin Mesylate 4 mg 10/16/19 21:00 Cardura PO HS [facility] Famotidine 20 mg 10/16/19 09:00 10/16/19 09:20 Pepcid PO 20 mg DAILY BABATUNDE Administration Heparin Sodium (Porcine) 0 unit 10/15/19 15:31 Heparin IV PER PROTOCOL PRN Low PTT Protocol Heparin Sodium/Sodium Chloride 250 mls @ 9.979 mls/hr 10/15/19 15:45 10/15/19 15:43 25,000 unit/ Sodium Chloride IV 10 units/kg/hr .Q24H BABATUNDE 9.979 mls/hr Administration Protocol 10 UNITS/KG/HR Sodium Chloride 1,000 ml/ IV 1,000 mls @ 98.9 mls/hr 10/16/19 09:05 10/16/19 09:28 Solution IV 10/16/19 19:11 98.9 mls/hr .Q10H7M ONE Administration 1 ML/KG/HR Losartan Potassium 50 mg 10/16/19 09:00 10/16/19 09:20 Cozaar PO 50 mg DAILY [facility] Administration Metoprolol Succinate 25 mg 10/16/19 09:00 10/16/19 09:19 Toprol Xl PO 25 mg DAILY BABATUNDE Administration Nitroglycerin 0.4 mg 10/15/19 15:35 10/16/19 08:08 Nitrostat SUBLINGUAL 0.4 mg Q5M PRN Administration Chest Pain Non-Formulary Medication 0.5 mg 10/16/19 18:00 Alprazolam [Alprazolam Xr] PO DAILY@1800 [facility] Zolpidem Tartrate 10 mg 10/15/19 21:00 10/15/19 21:08 Ambien PO 10 mg HS [facility] Administration Intake and Output 10/15/19 10/16/19 10/16/19 22:59 06:59 14:59 Intake Total 240 Output Total 400 Balance 240 -400 Intake: Oral 240 Output: Urine 400 Other: Voiding Method Toilet # Voids 0 2 Weight 99.79 kg 98.9 kg 10/15/19 14:12 10/15/19 14:12 EKG Interpretations (text) EKG showed normal sinus rhythm with inferior Q waves Assessment and Plan Plan: Assessment and plan #1 non-ST elevation [place] #2 hypertension #3 hyperlipidemia #4 nonsmoker #5 family history of premature coronary artery disease in his father who had his first myocardial infarction in his 50s #6 history of recurrent kidney stones for which patient underwent a nephrectomy #7 prior history of TIA Plan We will increase the patient's statin to 80 mg daily, continue aspirin, and angiotensin joseline. Add a small dose of beta joseline to the patient's medication regime. A stat echocardiogram with Doppler study has been requested and patient has been advised to undergo cardiac catheterization. The risks and the benefits of the procedure explained to the patient in detail. This would be performed today by Dr. Rivas. Further recommendations will be based on the findings of this procedure and the patient's overall clinical course. DNP note has been reviewed, I agree with a documented findings and plan of care. Patient was seen and examined.
[2019-10-16 10:32] LABS: Glucose,Whole Blood 115 mg/dL (75-99)
--- NOTE | 2019-10-16 11:21 | ECHOF ---
Referral Reason:assess lvf MEASUREMENTS -------- HEIGHT: 152.4 cm WEIGHT: 99.8 kg BP: RVIDd: 4.0 cm (< 3.3) IVSd: 1.5 cm (0.6 - 1.1) LVIDd: 4.1 cm (3.9 - 5.3) LVPWd: 1.4 cm (0.6 - 1.1) IVSs: 1.9 cm LVIDs: 3.1 cm LVPWs: 1.4 cm LA Diam: 4.6 cm (2.7 - 3.8) LAESV Index (A-L): 31.96 ml/m Ao Diam: 3.9 cm (2.0 - 3.7) AV Cusp: 2.0 cm (1.5 - 2.6) MV EXCURSION: 16.312 mm (> 18.000) MV EF SLOPE: 63 mm/s (70 - 150) EPSS: 0.6 cm MV E Jordon: 0.31 m/s MV DecT: 235 ms MV A Jordon: 0.77 m/s MV E/A Ratio: 0.40 RAP: 5.00 mmHg RVSP: 16.30 mmHg FINDINGS -------- Sinus rhythm. This was a technically adequate study. The left ventricular size is normal. There is moderate concentric left ventricular hypertrophy. O verall left ventricular systolic function is normal with, an EF between 55 - 60 %. The right ventricle is mildly enlarged. LA is midly dilated 29-33ml/m2. The right atrial size is normal. There is mild aortic valve sclerosis. There is mild aortic regurgitation. Mild mitral annular calcification present. Mild mitral regurgitation is present. Mild tricuspid regurgitation present. Right ventricular systolic pressure is normal at < 35 mmHg. Trace/mild (physiologic) pulmonic regurgitation. Ascending Aortic Root is dilated and measures 4.0cm. There is no pericardial effusion. CONCLUSIONS -------- 1. There is moderate concentric left ventricular hypertrophy. 2. Overall left ventricular systolic function is normal with, an EF between 55 - 60 %. 3. The right ventricle is mildly enlarged. 4. LA is midly dilated 29-33ml/m2. 5. There is mild aortic valve sclerosis. 6. There is mild aortic regurgitation. 7. Mild mitral annular calcification present. 8. Mild mitral regurgitation is present. 9. Mild tricuspid regurgitation present. 10. Trace/mild (physiologic) pulmonic regurgitation. 11. Ascending Aortic Root is dilated and measures 4.0cm. 12. There is no pericardial effusion. [employer]: Amber Castelan RDCS
--- NOTE | 2019-10-16 11:38 | P.PN ---
Subjective Progress Note Date: 10/16/19 69-year-old mildly overweight male one of Dr. Duarte patient with past medical history of TIA, hypertension, hyperlipidemia and recurrent kidney stone who was in the hospital last May [address] Miguel for large kidney stone ended up having nephrostomy successfully with no major complication. Patient otherwise has been doing well on his current medication with no major reaction or side effect. He denies any previous history of CAD or OR. He developed to have midsternal chest pain on and off since yesterday he described his pain as a pressure-like with mild nausea feeling and cold sweat he denies any radiation his symptoms were wrap not associated diaphoresis. Patient now symptoms were wrap on and off through the night he improved slight bit to walk up this morning with worsening symptoms associated with mild tingling sensation and numbness in the arm in the feet his symptoms where worsening with inspiration and exertion. [facility] where was seen and evaluated his EKG showed inferior lead Q waves along with lateral leads slight abnormality his troponin was elevated patient was diagnosed with non-ST OR. Patient was started on heparin drip cardiology consultation and order an echo patient will need most likely go for heart cath in the next 24 hours. 10/15: Patient states he has had additional episodes of tightness in his chest. He did receive 2 nitroglycerin this morning. Echocardiogram reveals EF of 55- 60%, moderate concentric left ventricular hypertrophy, mild aortic valve sclerosis, mild aortic regurgitation, mild mitral regurgitation, mild tricuspid regurgitation. Patient has been seen by cardiology with plan for heart catheterization. Statin was increased to 80 mg and beta joseline added. Review of Systems CONSTITUTIONAL: Well-developed no acute respiratory distress. No fever, no chills. EYES: No icterus sclerae, no conjunctivitis. EARS, NOSE, MOUTH, THROAT, and FACE: No sore throat, lymphadenopathy, carotid bruits or deformity. RESPIRATORY: No SOB cough or wheezes. CARDIOVASCULAR: Chest pain with mild palpitation and angina. GASTROINTESTINAL: No Abd pain, Nausea or vomiting, no Diarrhea or constipation, No GI Bleed, no distention or masses. GENITOURINARY: Negative for Hematuria or UTI, no kidney stones. INTEGUMENT/BREAST: Negative for any muscular injury with mild osteoarthritis.. HEMATOLOGIC/LYMPHATIC: Negative for bleed or purpura. MUSCULOSKELTAL: Negative for Myalgia or arthralgia. NEURLOGICAL: No LOC, Sz or syncope, blurred vision dizziness or abnormality.. BEHAVIORAL/PSYCH: Negative. ENDOCRINE: Negative. Physical examination General Appearance: Alert, cooperative, no distress, appears stated age. Patient resting in bed. Neck HEENT: Supple, no lymphadenopathy, no thyroid enlargement, no carotid bruits. Lungs: Clear to auscultation without crackles or wheezes no rhonchi, no deformity. Chest Wall: Chest wall normal expansion with deep inspiration no tenderness and no deformity was found on exam, no costochondral pain or discomfort. Heart: Regular rate and rhythm, S1, S2 normal, no murmur, rub or gallop. Back: Symmetric, no curvature, ROM normal, no CVA tenderness. Abdomen: Soft, non-tender, bowel sounds active all four quadrants, no masses, no organomegaly. Extremities: Extremities normal, atraumatic, no cyanosis or edema. Pulses: 2+ and symmetric. Skin: Skin color, texture, tugor normal, no rashes or lesions. Neurologic: Alert oriented x3 cranial nerves II through XII intact, no motor deficit, no abnormal balance or gait. Assessment and plan 1 non-ST OR. Cardiology consult appreciated. Heart catheterization today. Continue aspirin, Lipitor 80 mg at bedtime, Plavix 75 mg daily, Toprol-XL 25 mg daily. Echocardiogram as above. 2 hypertension. Continue Cardura 4 mg at bedtime, losartan 50 mg daily, Toprol- XL. 3 previous history of TIA: Patient has been on Plavix and baby aspirin the past. 4 hyperglycemia: Control continue to watch blood sugar while he is in hospital. 5 BPH: Continue Cardura. 6 hyperlipidemia. Continue statin: Lipid panel will be done for tomorrow morning patient be started on statin. 7 DVT prophylaxis: Patient will continue on heparin drip. 8 GI prophylaxis: Patient be continue on Pepcid 20 mg daily. CODE STATUS: Full code. Charge plan: Return home Impression and plan of care have been directed as dictated by the signing physician. Raegan Coreas nurse practitioner acting as scribe for signing physician. Objective - Vital Signs Vital signs: Vital Signs Temp 98.3 F 10/15/19 23:50 Pulse 74 10/16/19 04:00 Resp 16 10/16/19 04:00 BP 157/102 10/16/19 04:00 Pulse Ox 95 10/16/19 04:00 Intake & Output 10/15/19 10/16/19 10/16/19 18:59 06:59 18:59 Intake Total 240 Output Total 400 Balance 240 -400 Weight 99.79 kg 98.9 kg Intake: Oral 240 Output: Urine 400 Other: Voiding Method Toilet # Voids 0 2 - Labs CBC & Chem 7: 10/15/19 14:12 10/15/19 14:12 Labs: Abnormal Lab Results - Last 24 Hours (Table) 10/15/19 10/15/19 10/15/19 Range/Units 14:12 14:12 17:17 APTT (22.0-30.0) sec Glucose 128 H (74-99) mg/dL Troponin I 0.404 H* 0.761 H* (0.000-0.034) ng/mL 10/15/19 10/15/19 Range/Units 21:30 21:30 APTT 44.2 H (22.0-30.0) sec Glucose (74-99) mg/dL Troponin I 3.100 H* (0.000-0.034) ng/mL
[2019-10-16] MEDS: HEPARIN SOD,PORK IN 0.45% NACL 25,000 UNIT in 0.45% NACL 1 250ML.BAG IV SCH (14:05)
[2019-10-16] MEDS ORDERED: LIDOCAINE 1% INJ 10MG/ML (20 ML MDV) ONE (15:44)
[2019-10-16] MEDS ORDERED: VERAPAMIL 2.5 MG/ML 2 ML AMP ONE (15:45)
[2019-10-16] MEDS ORDERED: fentaNYL (PF) 50 MCG/ML 2 ML AMP ONE (16:01)
[2019-10-16] MEDS ORDERED: LIDOCAINE 1% INJ 10MG/ML (20 ML MDV) SQ ONE (16:04)
[2019-10-16] MEDS ORDERED: fentaNYL (PF) 50 MCG/ML 2 ML AMP IV ONE (16:05)
[2019-10-16] MEDS ORDERED: MIDAZOLAM 2 MG/2 ML VIAL IV ONE (16:06)
[2019-10-16] MEDS ORDERED: VERAPAMIL SYRINGE (5 MG/10 ML) INTRAARTER ONE (16:09)
[2019-10-16] MEDS ORDERED: IV FLUID CONTINUATION 500 ML IV ONE (16:09)
[2019-10-16] MEDS ORDERED: HEPARIN SODIUM 1,000 UN/ML (10ML VL) IV ONE (16:13)
--- NOTE | 2019-10-16 16:33 | P.CARDCATH ---
Date of Procedure: 10/16/19 Preoperative Diagnosis: Non-STEMI Postoperative Diagnosis: Multivessel disease Procedure(s) Performed: Left heart catheterization without left ventriculography Description of Procedure: HISTORY: This is a 69-year-old gentleman with history of hypertension, hypercholesterolemia who was admitted to the hospital with chest pain and positive troponin suggestive of non-STEMI. Patient is advised to have a cardiac catheterization for definitive diagnosis and further intervention as needed CONSENT:I have discussed the risks, benefits and alternative therapies for the above-mentioned procedure and for both sedation/analgesia as well as necessary blood product administration, if indicated, as they pertain to this patient. The patient has indicated understanding and acceptance of the risks and procedures discussed. PROCEDURE: Patient was brought to the lab in a fasting state. Patient was given some IV sedation. The right wrist is infiltrated with lidocaine and right radial artery was entered using Seldinger technique. A 6-Sami catheter was left in place and selective coronary arteriography was performed. Patient tolerated the procedure well. No immediate complications were noted and patient went on to have stent placement of the circumflex. Patient also has lesions in the RCA for which he needs intervention in the near future Conscious Sedation: Versed 1mg Fentanyl 50 g Duration 19 minutes HEMODYNAMICS: The aortic pressure is about 114/72. Left ventricular end- diastolic pressure was not measured SELECTIVE CORONARY ARTERIOGRAPHY: LEFT MAIN: Normal length and free of occlusive disease THE LEFT ANTERIOR DESCENDING CORONARY ARTERY:. Calcified vessel with mild disease in the midportion without any clinical significant lesions THE LEFT CIRCUMFLEX AND IS CORONARY ARTERY: Moderate caliber vessel with 95% stenosis THE RIGHT CORONARY ARTERY:. This is a good caliber vessel giving rise to good-sized PDA and PLV. The PDA has 95% stenosis. The PLV branch has couple of lesions with 90-90% stenosis LEFT VENTRICULOGRAPHY: Not performed FINAL IMPRESSION:. Two-vessel disease with critical lesion in the circumflex and also distal RCA involving the PDA and PLV PLAN: Stent placement of the circumflex today and stated stent placement of the RCA in the near future PROGNOSIS: Guarded
[2019-10-16] MEDS ORDERED: IOPAMIDOL-370 100ML BTL INJ ONE ×3 (16:43→17:11)
[2019-10-16] MEDS ORDERED: BIVALIRUDIN BOLUS 250 MG/50 ML IV ONE (16:44)
[2019-10-16] MEDS ORDERED: BIVALIRUDIN 250 MG in SODIUM CHLORIDE 0.9% 50 ML IV ONE (16:44)
[2019-10-16] MEDS ORDERED: niCARdipine 25 MG/10 ML VIAL ONE (16:53)
[2019-10-16] MEDS ORDERED: niCARdipine Syringe (1,000 mcg/10 mL) INTRACORON ONE (16:54)
[2019-10-16] MEDS: niCARdipine Syringe (1,000 mcg/10 mL) INTRACORON ONE ×2 (16:54→17:05)
[2019-10-16] MEDS ORDERED: NITROGLYCERIN 1000MCG/10ML SYRINGE INTRACORON ONE (17:06)
[2019-10-16] MEDS ORDERED: TICAGRELOR 90 MG TAB ONE (17:09)
[2019-10-16] MEDS ORDERED: TICAGRELOR 90 MG TAB PO ONE (17:11)
[2019-10-16] MEDS ORDERED: MAG HYDROX/AL HYDROX/SIMETH 30 ML CUP PO PRN (17:29)
[2019-10-16] MEDS ORDERED: ATROPINE SULFATE 0.1 MG/ML 10ML SYRINGE IV PRN (17:29)
[2019-10-16] MEDS ORDERED: ZOLPIDEM 5 MG TAB PO PRN (17:29)
[2019-10-16] MEDS ORDERED: RX INFO: IV CONTRAST WAS GIVEN 1 EACH MISC MISCELLANE PRN (17:29)
[2019-10-16] MEDS ORDERED: SODIUM CHLORIDE 0.9% 1,000 ML IV SCH (17:30)
[2019-10-16] MEDS ORDERED: ALPRAZOLAM 0.5 MG PO SCH (18:00)
[2019-10-16] MEDS ORDERED: CITALOPRAM HYDROBROMIDE 20 MG TAB PO SCH (21:00)
[2019-10-16] MEDS ORDERED: ATORVASTATIN 10 MG TAB PO SCH (21:00)
[2019-10-16] MEDS ORDERED: DOXAZOSIN 4 MG TAB PO SCH (21:00)
[2019-10-16] MEDS ORDERED: CLOPIDOGREL 75 MG TAB PO SCH (21:00)
--- NOTE | 2019-10-16 21:07 | PTCA ---
PERCUTANEOUSTRANS CORORONARY ANGIOGRAPHY DATE OF SERVICE: 10/16/2019. PROCEDURE: Percutaneous transluminal coronary angioplasty and stenting of a first obtuse marginal branch of circumflex. PERFORMED BY: Dr. Mary Her. Moderate conscious sedation time was 52 minutes. Patient was administered Versed. Oxygen saturation, hemodynamics and EKG were monitored closely. CLINICAL INFORMATION: Mr. Jose Ramírez is a 69-year-old gentleman with history of hypertension and hypercholesterolemia with a question of TIA in the past. He presented with chest pain, had a troponin elevation and [id number] MD. He was seen and evaluated by Dr. Rivas, who performed a cardiac cath which revealed a significant disease in the superdominant RCA, and also a large circumflex marginal had a long area of disease with a 99% mid stenosis with thrombus. He was advised intervention of the circumflex. We will do a staged intervention of RCA at a later date. Risks, benefits, options, rationale were explained before the procedure. PROCEDURE NOTE: The existing 6-Macedonian introducer in the right radial artery was used to perform procedure. I used a standard JL4 catheter, but then I had difficulty seating it. After using an XB 3.5, I switched over to an XB 4.0 guide catheter and with this I got decent guide support. A run-through wire was used to cross the lesion. Predilatation was performed with a 2.5 caliber 20 mm NC Trek balloon. I then deployed a 23 mm long 2.75 caliber Xience stent distally and another 8 mm stent proximal to it telescoping into it. The patient received Angiomax bolus and infusion. He also received 180 mg of Brilinta. He was on Plavix before, but I switched over to Brilinta. After deploying 2 stents, patient had an excellent angiographic result without complication. He had chest pain but no EKG changes. Results were discussed with the patient in detail. The sheath was taken out and a TR band applied as per protocol with saturation of the fingers of the right hand of 92%. Two drug-eluting stents were deployed in the obtuse marginal of 2.75 caliber 23 mm length distally and 8 mm length proximally. Excellent result was achieved without complication. Results were discussed with the patient, but no family members were available. MMODL / IJN: [id number] /
[2019-10-17 04:50] VITALS: RESP 18
[2019-10-17 07:50] LABS: Basophils % (A) 0 %; Eosinophils # (A) 0.1 k/uL (0-0.7); Eosinophils % (A) 1 %; HCT 46.2 % (39.0-53.0); HGB 15.1 gm/dL (13.0-17.5); Lymphocytes # (A) 1.2 k/uL (1.0-4.8); Lymphocytes % (A) 14 %; MCH 30.5 pg (25.0-35.0); MCHC 32.6 g/dL (31.0-37.0); MCV 93.4 fL (80.0-100.0); Monocytes # (A) 0.5 k/uL (0-1.0); Monocytes % (A) 6 %; Neutrophils # (A) 6.2 k/uL (1.3-7.7); Neutrophils % (A) 77 %; Platelet Count 196 k/uL (150-450); RBC 4.94 m/uL (4.30-5.90); RDW 12.8 % (11.5-15.5); WBC 8.1 k/uL (3.8-10.6)
[2019-10-17 07:58] LABS: Calcium 8.7 mg/dL (8.4-10.2); Potassium 4.2 mmol/L (3.5-5.1)
[2019-10-17] MEDS ORDERED: TICAGRELOR 90 MG TAB PO SCH (09:00)
[2019-10-17] MEDS ORDERED: ASPIRIN 81 MG PO SCH (09:00)
[2019-10-17] MEDS ORDERED: ASPIRIN 325 MG TAB PO SCH (09:00)
[2019-10-17] MEDS: LOSARTAN 50 MG TAB PO SCH (09:23)
[2019-10-17] MEDS: FAMOTIDINE 20 MG TAB PO SCH (09:23)
[2019-10-17] MEDS: METOPROLOL SUCCINATE (ER) 25 MG TAB.ER.24H PO SCH (09:23)
[2019-10-17] MEDS: ALPRAZolam 0.5 MG TAB PO SCH (09:23)
--- NOTE | 2019-10-17 15:32 | P.DS ---
Providers Date of admission: 10/15/19 15:35 Expected date of discharge: 10/17/19 Attending physician: Perico Santamaria Consults: 10/15/19 15:35 Consult Physician Urgent Consulting Provider: Declan Her Consult Reason/Comments: nstemi Do you want consulting provider notified?: Yes 10/16/19 17:29 Consult Physician Routine Consulting Provider: [facility] Consult Reason/Comments: Post Interventional patient Do you want consulting provider notified?: Already Contacted Primary care physician: Isauro Duarte [facility] Course: 69-year-old mildly overweight male one of Dr. Duarte patient with past medical history of TIA, hypertension, hyperlipidemia and recurrent kidney stone who was in the hospital last May [address] Miguel for large kidney stone ended up having nephrostomy successfully with no major complication. Patient otherwise has been doing well on his current medication with no major reaction or side effect. He denies any previous history of CAD or AR. He developed to have midsternal chest pain on and off since yesterday he described his pain as a pressure-like with mild nausea feeling and cold sweat he denies any radiation his symptoms were wrap not associated diaphoresis. Patient now symptoms were wrap on and off through the night he improved slight bit to walk up this morning with worsening symptoms associated with mild tingling sensation and numbness in the arm in the feet his symptoms where worsening with inspiration and exertion. Patient ended up coming to [facility] department at [facility] where was seen and evaluated his EKG showed inferior lead Q waves along with lateral leads slight abnormality his troponin was elevated patient was diagnosed with non-ST AR. Patient was started on heparin drip cardiology consultation and order an echo patient will need most likely go for heart cath in the next 24 hours. 10/15: Patient states he has had additional episodes of tightness in his chest. He did receive 2 nitroglycerin this morning. Echocardiogram reveals EF of 55- 60%, moderate concentric left ventricular hypertrophy, mild aortic valve sclerosis, mild aortic regurgitation, mild mitral regurgitation, mild tricuspid regurgitation. Patient has been seen by cardiology with plan for heart catheterization. Statin was increased to 80 mg and beta joseline added. 10/16: Yesterday, patient underwent heart catheterization and subsequently PTCA and stenting of the first obtuse marginal branch of circumflex with Dr. BARBER Her. Plan is for him to return a later time for RCA stenting. He has been cleared for discharge by cardiology with plan to follow-up in the office. Patient denies having a chest pain, shortness of breath, lightheadedness or dizziness. Prescriptions have been sent to his pharmacy. Patient will be discharged home today in stable condition. Assessment and plan 1 non-ST AR. 2 hypertension. 3 previous history of TIA. 4 hyperglycemia. 5 BPH. 6 hyperlipidemia. 7 COVID-19 infection not present. Charge plan: Return home Impression and plan of care have been directed as dictated by the signing physician. Raegan Coreas nurse practitioner acting as scribe for signing physician. Patient Condition at Discharge: Good Plan - Discharge Summary Discharge Rx Participant: Yes New Discharge Prescriptions: New Aspirin 81 mg PO DAILY #30 chew Ticagrelor [Brilinta] 90 mg PO BID #60 tab Atorvastatin [Lipitor] 80 mg PO HS #30 tab Nitroglycerin Sl Tabs [Nitrostat] 0.4 mg SUBLINGUAL Q5M PRN #25 tab PRN Reason: Chest Pain Metoprolol Succinate (ER) [Toprol XL] 25 mg PO DAILY #30 tab.er.24h Continue Zolpidem [Ambien] 10 mg PO HS PRN PRN Reason: Insomnia Doxazosin [Cardura] 4 mg PO HS Methylphenidate HCl [Ritalin] 10 mg PO DAILY Losartan Potassium [Cozaar] 50 mg PO DAILY HYDROcodone/APAP 5-325MG [[place] 5-325] 1 tab PO Q6HR PRN PRN Reason: kidney stone pain Citalopram Hydrobromide [Citalopram HBr] 20 mg PO HS ALPRAZolam [ALPRAZolam XR] 2 mg PO DAILY@1800 ALPRAZolam [Xanax] 1 mg PO QAM Discontinued Clopidogrel [Plavix] 75 mg PO HS Atorvastatin [Lipitor] 10 mg PO HS Discharge Medication List Zolpidem [Ambien] 10 mg PO HS PRN 03/19/16 [History] Doxazosin [Cardura] 4 mg PO HS 04/13/18 [History] Methylphenidate HCl [Ritalin] 10 mg PO DAILY 04/13/18 [History] ALPRAZolam [ALPRAZolam XR] 2 mg PO DAILY@1800 10/15/19 [History] ALPRAZolam [Xanax] 1 mg PO QAM 10/15/19 [History] Citalopram Hydrobromide [Citalopram HBr] 20 mg PO HS 10/15/19 [History] HYDROcodone/APAP 5-325MG [[place] 5-325] 1 tab PO Q6HR PRN 10/15/19 [History] Losartan Potassium [Cozaar] 50 mg PO DAILY 10/15/19 [History] Aspirin 81 mg PO DAILY #30 chew 10/17/19 [Rx] Atorvastatin [Lipitor] 80 mg PO HS #30 tab 10/17/19 [Rx] Metoprolol Succinate (ER) [Toprol XL] 25 mg PO DAILY #30 tab.er.24h 10/17/19 [Rx] Nitroglycerin Sl Tabs [Nitrostat] 0.4 mg SUBLINGUAL Q5M PRN #25 tab 10/17/19 [Rx] Ticagrelor [Brilinta] 90 mg PO BID #60 tab 10/17/19 [Rx] Follow up Appointment(s)/Referral(s): Isauro Duarte MD [Primary Care Provider] - 1-2 days (Please call and make an appointment for in 1-2 days tomorrow. ) Lisa Rivas MD [STAFF PHYSICIAN] - 1 Week ([facility] will call you back with an appointment.) Patient Instructions/Handouts: Heart Catheterization (DC)
--- NOTE | 2019-10-17 15:54 | P.PN ---
Subjective Progress Note Date: 10/17/19 This is a pleasant 69-year-old gentleman with documented history of hypertension, hyperlipidemia, recurrent kidney stones for which the patient underwent a prior nephrectomy, no prior history of smoking, okay to EtOH, family history of premature coronary artery disease in his father who had his first myocardial infarction in his 50s. Patient presented to the hospital with symptoms of chest tightness, he states that he normally walks up to 4 miles a day, he [place], states that just walking 2 blocks he develop some tightness in his chest. He did stop and have some breakfast, following that he states that the symptoms became considerably worse. He again started walking in the symptoms progressively worse and for this reason he came to the emergency room for further evaluation and treatment. 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 His chest x-ray on presentation here did not reveal any acute process. EKG showed a normal sinus rhythm with inferior Q waves. Blood pressure 126/80, 157/102 at present, heart rate in the 70s, respirations 16. White blood cell count 6.5, hemoglobin 16.4, platelet count 211. Sodium 138, potassium 4.2, BUN 20, creatinine 1.1. Troponin 0.4, 0.7, 3.1. At the time of my examination this morning, patient states he was still experiencing some midsternal chest tightness, a stat EKG was requested as well as a sublingual nitroglycerin. We also ordered a stat echocardiogram with Doppler study be performed and we started the patient on a beta joseline. He is currently on aspirin, statin, and an angiotensin joseline. Patient was advised to undergo cardiac catheterization, the risks and the benefits were explained to the patient in detail and he is willing to proceed. This will be performed this morning by Dr. Rivas. Further recommendations will be based on the findings of this test and patient's overall clinical course. 10/17/2019 Patient seen and examined this morning. He was taken to the cardiac catheterization lab yesterday where the patient was found to have two-vessel disease with a critical lesion in the circumflex and also distal RCA involving the PDA and PLV. He underwent subsequent stenting of the circumflex by Dr. Pedrito Her, and the plan was for him to go home today and return for stenting of the distal RCA involving the PDA and PLV. Patient was seen and examined this morning he's been up ambulating in the hallway. No further chest tightness or discomfort in the chest. Blood pressure 150/90 with a heart rate in the 60s, 97% on room air. White blood cell count 8.1, hemoglobin 15.1, platelet count 196. Sodium 138, potassium 4.2, BUN 14 and creatinine 1.0. Objective - Vital Signs Vital signs: Vital Signs Temp 98.0 F 10/17/19 11:35 Pulse 66 10/17/19 11:35 Resp 18 10/17/19 11:35 BP 151/92 10/17/19 11:35 Pulse Ox 97 10/17/19 11:35 Intake & Output 10/16/19 10/17/19 10/17/19 18:59 06:59 18:59 Intake Total 758.784 9340 Output Total 650 Balance 353.197 -650 1080 Weight 102.5 kg Intake: IV 130 Intake, IV Titration 223.197 Amount Heparin Sod,Pork in 0.45% 223.197 NaCl 25,000 unit In 0.45 % NaCl 1 250ml.bag @ 10 UNITS/KG/HR 9.979 mls/hr IV .Q24H [facility] Rx#: [id number] Oral 1080 Output: Urine 650 Other: Voiding Method Toilet # Voids 1 2 - Exam PHYSICAL EXAMINATION: GENERAL: 69-year-old gentleman in no acute distress at the time of my examination HEENT: Head is atraumatic, normocephalic. Pupils equal, round. Sclera anicteric. Conjunctiva are clear. Mucous membranes of the mouth are moist. Neck is supple. There is no elevated jugular venous pressure. No carotid bruit is heard. HEART EXAMINATION: Heart S1, S2 normal. No murmur or gallop heard. CHEST EXAMINATION: Lungs are clear to auscultation and precussion. No chest wall tenderness is noted on palpation or with deep breathing. ABDOMEN: Soft, nontender. Bowel sounds are heard. No organomegaly noted. EXTREMITIES: 2+ peripheral pulses with no evidence of peripheral edema and no calf tenderness noted. NEUROLOGIC patient is awake, alert and oriented 3 . - Labs CBC & Chem 7: 10/17/19 07:26 07/08/20 07:26 Labs: Abnormal Lab Results - Last 24 Hours (Table) 10/17/19 Range/Units 07:26 Glucose 102 H (74-99) mg/dL Assessment and Plan Plan: Assessment and plan #1 non-ST elevation NC, status post angioplasty and stenting of the circumflex artery. Patient also has significant disease in the right coronary artery #2 hypertension #3 hyperlipidemia #4 nonsmoker #5 family history of premature coronary artery disease in his father who had his first myocardial infarction in his 50s #6 history of recurrent kidney stones for which patient underwent a nephrectomy #7 prior history of TIA Plan Echocardiogram with Doppler study revealed a normal left ventricular systolic function. From cardiology's perspective, patient may be discharged home today. We'll make him a follow-up appointment to see Dr. Rivas in the office in one week. Patient will return to the hospital to undergo angioplasty and stenting of the RCA as an outpatient. DNP note has been reviewed, I agree with a documented findings and plan of care. Patient was seen and examined.
[2019-10-17] MEDS ORDERED: ATORVASTATIN 80 MG TAB PO SCH (21:00)
[2019-10-19 08:07] VITALS: BP 151/92; PULSE 66; TEMP 98
== END 2019-10-17 15:30 | disposition home or self-care (01) | DRG 247 ==
LOC: EC 13:45 → 3SCARD 15:35
PROVIDERS: ADMIT Internal Medicine Geriatric Medicine; ATTEND Internal Medicine Geriatric Medicine
PROC: 027035Z Dilation of Coronary Artery, One Artery with Two Drug-eluting Intraluminal Devices, Percutaneous Approach (ICD-10-PCS; principal; 2019-10-16 11:40)
PROC: B2111ZZ Fluoroscopy of Multiple Coronary Arteries using Low Osmolar Contrast (ICD-10-PCS; 2019-10-16 11:40)
PROC: 4A023N7 Measurement of Cardiac Sampling and Pressure, Left Heart, Percutaneous Approach (ICD-10-PCS; 2019-10-16 11:40)
DX: I21.4 Non-ST elevation (NSTEMI) myocardial infarction (principal); Z11.59 Encounter for screening for other viral diseases; I11.9 Hypertensive heart disease without heart failure; I25.10 Atherosclerotic heart disease of native coronary artery without angina pectoris; E78.5 Hyperlipidemia, unspecified; R73.9 Hyperglycemia, unspecified; N40.0 Benign prostatic hyperplasia without lower urinary tract symptoms; E66.3 Overweight; I08.3 Combined rheumatic disorders of mitral, aortic and tricuspid valves; G47.00 Insomnia, unspecified; Z68.36 Body mass index [BMI] 36.0-36.9, adult; Z79.02 Long term (current) use of antithrombotics/antiplatelets; Z79.899 Other long term (current) drug therapy; Z98.890 Other specified postprocedural states; Z96.653 Presence of artificial knee joint, bilateral; Z87.442 Personal history of urinary calculi; Z87.891 Personal history of nicotine dependence; Z86.73 Personal history of transient ischemic attack (TIA), and cerebral infarction without residual deficits; Z90.5 Acquired absence of kidney; Z82.49 Family history of ischemic heart disease and other diseases of the circulatory system
CPT/HCPCS: 36415; 71046; 80048; 80053; 80061; 83735; 84484; 85025; 85610; 85730; 93005; 93306; 93454; 96365; 96376; 99285

== ENCOUNTER 2019-11-19 06:14 | Day surgery (SDC) | payer MEDICARE, BC ==
--- NOTE | 2019-11-09 17:03 | HP ---
HISTORY AND PHYSICAL This is a 69-year-old gentleman with a known history of CAD, who sees Dr. Rivas in the outpatient setting. He was seen by by Dr. Rivas with a non-ST elevation AR and underwent a cardiac cath followed by PTCA and stenting of a very tight circumflex coronary artery. This was a nondominant circumflex. Which was also large in caliber and distribution. He had a superdominant RCA as well which has multiple areas of disease. I performed intervention of circumflex on 10/16/2019 with excellent result. He is being brought in for elective PCI of a significantly diseased RCA. RCA is a large vessel but has multiple areas of disease involving the entire length of the RCA in the distal portion and also its branches. The rationale, risks, benefits and options were explained to the patient. He understands all details. He is aware of the fact that this is a relatively high risk lesion with a large caliber and distribution and also has multiple areas of disease. The incidence of restenoses is also high. He was also explained the possibility of abrupt pre closure infection, bleeding, vascular injury, his myocardial infarction, and CVA. He understands all details and wishes to proceed with the procedure. PAST MEDICAL HISTORY: This is remarkable for hypertension, hyperlipidemia, and previous TIA and recent non ST elevation AR. He had a PCI of a circumflex performed on October 15 with excellent result. MEDICATIONS: At home include aspirin 81 mg daily, Brilinta 90 mg b.i.d., Cardura 4 mg daily, Lipitor 80 mg daily, losartan 50 mg daily, metoprolol succinate 25 mg daily, sublingual nitroglycerin. He also takes Ritalin and [place]. PHYSICAL EXAMINATION: On examination, blood pressure was 124/70, pulse rate was 70 per minute. HEENT: Unremarkable. Fundus was not examined by me. Neck is supple. There is no JVD. I do not hear a carotid bruit. Heart exam reveals S1, S2 heard normally. No significant rub, murmur or gallop. Lungs are clear. Abdomen is soft, nontender. Lower extremities reveal palpable pulses. No edema. Central nervous system is grossly within normal limits. IMPRESSION: 1. CAD with recent non ST elevation AR and stenting of circumflex. Now being brought in for elective PCI of highly diseased super dominant RCA. LAD has no significant disease. 2. Hypertension. 3. Hyperlipidemia. 4. History of remote TIA, details unclear. RECOMMENDATIONS: I am advising coronary angiography to check patency of circumflex and perform PCI of the distal RCA and also its branches. Rationale, risks, benefits, options explained. Patient understands all details and wishes to proceed with the procedure. MMODL / IJN: [id number] /
[2019-11-16 12:05] VITALS: BMI 38.2
[~2019-11-19 06:14] MED LIST changes: +ALPRAZolam 0.25 MG TAB PO PRN; +ALPRAZolam 0.5 MG TAB PO PRN; +ASPIRIN 325 MG TAB PO STA; +ATORVASTATIN 80 MG TAB PO STA; -DEXAMETHASONE SOD PHOSPHATE 10 MG/ML 1 ML VIAL IV ONE; -LIDOCAINE 1% 20 ML VIAL (10MG/ML) FOR IV START INTRADERMA PRN; -MIDAZOLAM 2 MG/2 ML VIAL IV PRN; +NITROGLYCERIN SL TABS 0.4 MG TAB SUBLINGUAL PRN; -ONDANSETRON 4 MG/2 ML VIAL IVP ONE; -SCOPOLAMINE 1.5MG/72HR PATCH TRANSDERM ONE; +SODIUM CHLORIDE 0.9% 1,000 ML in EMPTY BAG 1 BAG IV ONE; -ceFAZolin IN SWFI 2 GM/20 ML SYRINGE IVP ONE
[2019-11-19 06:52] LABS: Basophils # (A) 0.1 k/uL (0-0.2); Basophils % (A) 1 %; Eosinophils # (A) 0.1 k/uL (0-0.7); Eosinophils % (A) 2 %; HCT 42.9 % (39.0-53.0); HGB 14.5 gm/dL (13.0-17.5); Lymphocytes # (A) 1.2 k/uL (1.0-4.8); Lymphocytes % (A) 19 %; MCHC 33.8 g/dL (31.0-37.0); MCV 91.6 fL (80.0-100.0); Mean Platelet Volume 6.9; Monocytes # (A) 0.5 k/uL (0-1.0); Monocytes % (A) 8 %; Neutrophils # (A) 4.4 k/uL (1.3-7.7); Neutrophils % (A) 68 %; Platelet Count 202 k/uL (150-450); RBC 4.68 m/uL (4.30-5.90); RDW 13.2 % (11.5-15.5); WBC 6.4 k/uL (3.8-10.6)
[2019-11-19 07:02] LABS: Calcium 8.8 mg/dL (8.4-10.2); Potassium 4.1 mmol/L (3.5-5.1)
[2019-11-19] MEDS ORDERED: LIDOCAINE 1% INJ 10MG/ML (20 ML MDV) ONE (07:31)
[2019-11-19] MEDS ORDERED: MIDAZOLAM 2 MG/2 ML VIAL IV ONE (07:46)
[2019-11-19] MEDS ORDERED: LIDOCAINE 1% INJ 10MG/ML (20 ML MDV) SQ ONE (07:47)
[2019-11-19] MEDS ORDERED: HEPARIN SODIUM 1,000 UN/ML (10ML VL) ONE (07:49)
[2019-11-19] MEDS ORDERED: VERAPAMIL SYRINGE (5 MG/10 ML) INTRAARTER ONE (07:49)
[2019-11-19] MEDS ORDERED: VERAPAMIL 2.5 MG/ML 2 ML AMP ONE (07:50)
[2019-11-19] MEDS ORDERED: IOPAMIDOL-370 100ML BTL INJ ONE ×4 (08:11→09:46)
[2019-11-19] MEDS: NITROGLYCERIN 1000MCG/10ML SYRINGE INTRACORON ONE ×4 (08:30→09:39)
[2019-11-19] MEDS ORDERED: HYDROmorphone 1 MG/ML 1 ML SYRINGE ONE (09:12)
[2019-11-19] MEDS ORDERED: HYDROmorphone 1 MG/ML 1 ML SYRINGE IVP ONE (09:13)
[2019-11-19] MEDS ORDERED: TICAGRELOR 90 MG TAB PO ONE (09:47)
[2019-11-19] MEDS ORDERED: TICAGRELOR 90 MG TAB ONE (09:48)
[2019-11-19] MEDS ORDERED: NITROGLYCERIN SL TABS 0.4 MG TAB SUBLINGUAL PRN (10:18)
[2019-11-19] MEDS ORDERED: ZOLPIDEM 10 MG TAB PO PRN (10:18)
[2019-11-19] MEDS ORDERED: HYDROcodone/APAP 5-325MG 1 EACH TAB PO PRN (10:18)
[2019-11-19] MEDS: HYDROmorphone 0.5 MG/0.5 ML SYRINGE IVP PRN ×2 (10:28→21:34)
[2019-11-19] MEDS: SODIUM CHLORIDE 0.9% 1,000 ML IV SCH ×2 (11:00→21:34)
[2019-11-19] MEDS ORDERED: MORPHINE SULFATE 2 MG/ML SYRINGE IVP STA (11:02)
--- NOTE | 2019-11-19 15:51 | PTCA ---
PERCUTANEOUSTRANS CORORONARY ANGIOGRAPHY DATE OF SERVICE: 11/19/2019. PROCEDURE: PTCA and stenting of the PLV branch of RCA, mid RCA, acute marginal branch of RCA with 3 drug-eluting stents. PERFORMED BY: Dr. Mary Her. Moderate conscious sedation time was 122 minutes. Patient was administered Versed and Dilaudid. Oxygen saturation, hemodynamics and EKG were monitored closely. CLINICAL INFORMATION: Mr. Jose Ramírez is a 69-year-old gentleman with a known history of CAD who presented with a non-ST elevation UT on October 15, underwent stenting of a very tight nondominant but significant distribution circumflex. He has a superdominant RCA which has multiple areas of disease, was brought in for an elective PCI with symptoms of angina. Risks, benefits, options were explained in great detail. He understood all details and wished to proceed with the procedure. PROCEDURE NOTE: Under local anesthesia and strict aseptic precautions, a 6-Yi introducer was placed in the right radial artery. Using a standard JL4 diagnostic catheter, I performed selective coronary angiography of the left system and noted that the circumflex was widely patent with good flow. I then turned my attention to the RCA. Initially, I used a standard right Mallory catheter and then I tried a KRH 4.0 catheter but with these, I was unable to get a good guide support. Eventually I used an AL1 catheter. With this, I was able to gain decent guide support. A run-through wire was used to cross the lesion in the mid RCA, in the PLV branch and kept very distally. I used a 2.25 caliber NC Trek balloon of 15 mm length with this I was able to pre-dilate the lesion in the mid RCA as well as the PLV branch. I then tried to advance a 2.25 caliber 12 mm long Xience stent, but I had great difficulty because of extreme calcification at the bifurcation of the RCA into PLV and PDA. I then used a Whisper wire, long which I used as the main wire and the run-through wire was a karina wire. With this combination, a 2.5 caliber 20 mm NC Emerge balloon was used to pre-dilate the heavily calcified area in the distal RCA and PLV branch origin. With a 2.5 mm balloon at 14 atmospheres. I was able to open of the balloon fully. Using the same combination, I advanced a 2.25 caliber 12 mm Xience stent and deployed this just after the origin of the PLV branch. Excellent angiographic result was achieved. I then used a 3.25 caliber 18 mm long Xience stent and deployed this in the mid RCA just after the acute marginal branch. The PLV lesion was dilated with excellent result. The PDA was widely patent in the mid RCA had a good result. I then used the same whisper wire and advanced it into the acute marginal branch which was a larger branch and that supplied the a territory of PDA even more than the actual PDA. With some difficulty I was able to advance a 2.25 caliber 12 mm long NC Trek balloon and pre-dilated the acute marginal at its origin as it came off from the main RCA. I then deployed a 2.5 caliber 12 mm Xience stent into the origin of the acute marginal branch. I then advanced the same wire into the distal RCA/PLV branch and used a 3.5 caliber 15 mm long NC Trek balloon and with this I was able to dilate the previously placed 3.25 stent at 14 atmospheres. Excellent angiographic result was achieved with a good BRITTANIE-3 flow in the PLV branch, of the PDA branch as well as the RCA and the acute marginal branch. The patient had chest pain and inferior ST elevation on mid RCA dilatation as well as the PLV dilatation. Results were excellent. The sheath was taken out and a TR band applied as per protocol with the understanding he will be discharged tomorrow if he remains stable. Results were discussed with the patient and I also spoke to friend by name Dr. Mast. I expect he will be discharged in the next 24 hours. MMODL / IJN: [id number] /
[2019-11-19] MEDS ORDERED: DOXAZOSIN 4 MG TAB PO SCH (21:00)
[2019-11-19] MEDS ORDERED: METOPROLOL SUCCINATE (ER) 25 MG TAB.ER.24H PO SCH (21:00)
[2019-11-19] MEDS ORDERED: CITALOPRAM HYDROBROMIDE 20 MG TAB PO SCH (21:00)
[2019-11-19] MEDS ORDERED: ATORVASTATIN 80 MG TAB PO SCH (21:00)
[2019-11-19] MEDS ORDERED: LOSARTAN 50 MG TAB PO SCH (21:00)
[2019-11-19] MEDS: TICAGRELOR 90 MG TAB PO SCH (21:33)
[2019-11-19] MEDS ORDERED: ZOLPIDEM 5 MG TAB PO PRN (21:39)
[2019-11-19] MEDS ORDERED: SODIUM CHLORIDE 0.9% 1,000 ML IV SCH (23:00)
[2019-11-20] MEDS: HYDROmorphone 0.5 MG/0.5 ML SYRINGE IVP PRN (03:53)
[2019-11-20 05:20] VITALS: RESP 15
[2019-11-20 06:45] LABS: Basophils % (A) 0 %; Eosinophils # (A) 0.1 k/uL (0-0.7); Eosinophils % (A) 1 %; HCT 41.5 % (39.0-53.0); HGB 13.8 gm/dL (13.0-17.5); Lymphocytes # (A) 1.2 k/uL (1.0-4.8); Lymphocytes % (A) 15 %; MCH 30.8 pg (25.0-35.0); MCHC 33.1 g/dL (31.0-37.0); Mean Platelet Volume 7.2; Monocytes # (A) 0.5 k/uL (0-1.0); Monocytes % (A) 6 %; Neutrophils # (A) 6.1 k/uL (1.3-7.7); Neutrophils % (A) 75 %; Platelet Count 217 k/uL (150-450); RBC 4.47 m/uL (4.30-5.90); RDW 12.6 % (11.5-15.5); WBC 8.2 k/uL (3.8-10.6)
[2019-11-20 06:58] LABS: African American GFR (CKD) >90 (>60 ml/min/1.73 sqM); Anion Gap 4 mmol/L; Blood Urea Nitrogen 13 mg/dL (9-20); Calcium 8.5 mg/dL (8.4-10.2); Carbon Dioxide 27 mmol/L (22-30); Chloride 109 mmol/L (98-107); Glucose 99 mg/dL (74-99); Non-African American GFR(CKD) 87 (>60 ml/min/1.73 sqM); Potassium 4.2 mmol/L (3.5-5.1); Sodium 140 mmol/L (137-145)
[2019-11-20] MEDS ORDERED: ASPIRIN 81 MG PO SCH (09:00)
[2019-11-20] MEDS ORDERED: LOSARTAN 50 MG TAB PO SCH (09:00)
[2019-11-20] MEDS ORDERED: ALPRAZolam 1 MG TAB PO SCH (09:00)
[2019-11-20] MEDS ORDERED: METHYLPHENIDATE HCL 10 MG TAB PO SCH (09:00)
[2019-11-20] MEDS: TICAGRELOR 90 MG TAB PO SCH (09:03)
[2019-11-20 09:23] VITALS: BP 149/94; PULSE 74; TEMP 98.3
--- NOTE | 2019-11-20 18:57 | DS ---
DISCHARGE SUMMARY DATE OF DICTATION: 11/20/2019 Mr. Jose Ramírez is a 69-year-old gentleman with a history of non-ST elevation VT about a month ago. I brought him back for elective PCI of a highly diseased super dominant RCA in the midportion PLV branch as well as in the acute marginal branch which was supplying the PDA territory. The procedure was performed yesterday from right radial approach. Circumflex that was stented about a month ago was widely patent with good flow. I performed stenting of the mid RCA, PLV branch and the acute marginal branch with three drug-eluting stents with excellent result. Postprocedure course was uneventful. This morning he is doing well. Blood pressure is 150/90. I am going to increase the losartan from 50 mg daily to 100 mg daily. His labs are good, EKG is unremarkable. No further symptoms. The right radial cath site is clean and dry with excellent pulse. We will increase activity today and discharge him home and he will follow up with Dr. Rivas in one week. Advised to call for questions, concerns or problems and not to do any excessive physical activity with the right hand for at least 4-5 days. PHYSICAL EXAMINATION: Revealed blood pressure of 150/90, pulse rate is 70. EKG unremarkable. No JVD. S1, S2 heard normally. No significant rub, murmur or gallop. Lungs are clear. Abdomen and lower extremity exam unchanged. Central nervous system unremarkable. IMPRESSION: 1. Coronary artery disease with recent non ST elevation myocardial infarction status post stenting of the circumflex a month ago and the RCA which was a very difficult super dominant vessel which was stented with three drug-eluting stents yesterday. 2. Hypertension. 3. Hyperlipidemia. 4. Remote history of transient ischemic attack, details unclear. RECOMMENDATIONS: Discharge home today. Discharge instructions regarding activity, diet and medications were given. Appointment ine one week with Dr. Rivas. MMODL / IJN: [id number] /
== END 2019-11-20 10:17 | disposition home or self-care (01) ==
LOC: CATHCVL 06:14 → 3NCARDOBS 09:56 → CATHCVL 11-20 10:17
PROVIDERS: ATTEND Internal Medicine Interventional Cardiology
DX: I25.119 Atherosclerotic heart disease of native coronary artery with unspecified angina pectoris (principal); I10 Essential (primary) hypertension; E78.5 Hyperlipidemia, unspecified; I25.2 Old myocardial infarction; Z95.5 Presence of coronary angioplasty implant and graft; Z86.73 Personal history of transient ischemic attack (TIA), and cerebral infarction without residual deficits; Z79.02 Long term (current) use of antithrombotics/antiplatelets; Z79.82 Long term (current) use of aspirin; Z79.899 Other long term (current) drug therapy; Z79.891 Long term (current) use of opiate analgesic
CPT/HCPCS: 85347; 80048 ×2; 85025 ×2; C9600; C9601; C1769 ×4; C1887 ×3; C1725 ×2; C1874 ×2; C1894; J2250; J2001; J2270; J1644 ×2; J1170 ×3; Q9967

== ENCOUNTER → 2020-11-27 | Outpatient (CLI) | payer MEDICARE, BC ==
[2020-11-27 19:00] LABS: Basophils # (A) 0.06 X 10*3/uL (0.00-0.10); Basophils % (A) 0.8 %; Eosinophils # (A) 0.11 X 10*3/uL (0.04-0.35); Eosinophils % (A) 1.6 %; HCT 45.8 % (39.6-50.0); HGB 15.3 g/dL (13.0-17.0); Lymphocytes # (A) 1.47 X 10*3/uL (0.90-5.00); Lymphocytes % (A) 20.8 %; MCHC 33.4 g/dL (32.0-37.0); MCV 92.7 fL (80.0-97.0); Mean Platelet Volume 9.6 fL (9.5-12.2); Monocytes % (A) 8.5 %; Neutrophils # (A) 4.77 X 10*3/uL (1.80-7.70); Neutrophils % (A) 67.5 %; Platelet Count 218 X 10*3/uL (140-440); RBC 4.94 X 10*6/uL (4.40-5.60); RDW 12.7 % (11.5-14.5); WBC 7.07 X 10*3/uL (4.50-10.00)
[2020-11-27 22:26] LABS: African American GFR (CKD) 71.6 (60.0-200.0); Albumin 4.3 g/dL (3.80-4.90); Albumin/Globulin Ratio 1.87 (1.60-3.17); Anion Gap 6.2 mmol/L (4.00-12.00); BUN/Creat Ratio 12.5 Ratio (12.00-20.00); Calcium 9.2 mg/dL (8.7-10.3); Carbon Dioxide 29.8 mmol/L (21.6-31.8); Chol/HDL Ratio 3.91; Globulin 2.3 g/dL (1.6-3.3); LDL Cholesterol,Calculated 132.8 mg/dL (0.0-131.0); Non-African American GFR(CKD) 61.8 (60.0-200.0); Potassium 4.7 mmol/L (3.5-5.5); Total Bilirubin 0.6 mg/dL (0.2-1.2); Total Protein 6.6 g/dL (6.2-8.2); VLDL Calculation 21.2 mg/dL (5.00-40.00)
[2020-11-27 22:39] LABS: PSA Annual Screen 0.3 ng/mL (0.0-4.0)
== END | disposition home or self-care (01) ==
LOC: LABWHC1 13:19
PROVIDERS: ATTEND Internal Medicine Cardiovascular Disease
DX: Z12.5 Encounter for screening for malignant neoplasm of prostate (principal); E55.9 Vitamin D deficiency, unspecified; I10 Essential (primary) hypertension; E78.00 Pure hypercholesterolemia, unspecified; I25.10 Atherosclerotic heart disease of native coronary artery without angina pectoris; E78.5 Hyperlipidemia, unspecified
CPT/HCPCS: 80061; 80053; 84443; 85025; 82306; 36415; G0103

== ENCOUNTER → 2021-07-09 | Outpatient (CLI) | payer MEDICARE, BC ==
--- NOTE | 2021-07-09 09:40 | XR ---
EXAMINATION TYPE: XR KUB DATE OF EXAM: 07/09/2021 Comparison: 04/19/2018 Clinical History: 71-year-old male N20.0 Calculus-Kidney Findings: Bilateral nephrolithiasis is demonstrated, left greater than right. Calculi in the right appear overa ll smaller measuring up to 1.0 cm versus 1.7 cm, previously. Calculi on the left appear more numerous measuring up to 1.0 cm versus 9 mm, previously. Nonobstructive bowel gas pattern. Mild overall stool. Scattered air and stool extends distally to the rectum. Scattered degenerative changes thoracolumbar spine. Mild degenerative change both hips. Impression: Redemonstrated bilateral nephrolithiasis. Calculi appear smaller on the right measuring up to 9 mm ve rsus 1.7 cm, previously. Calculi on the left appear now more numerous measuring up to 1 cm versus 9 m m, previously.
== END | disposition home or self-care (01) ==
LOC: RADXRMAIN 09:12
PROVIDERS: ATTEND Urology
DX: N20.0 Calculus of kidney (principal)
CPT/HCPCS: 74018

== ENCOUNTER → 2021-07-10 | Outpatient (CLI) | payer MEDICARE, BC ==
--- NOTE | 2021-07-10 13:00 | CT ---
EXAMINATION TYPE: CT abdomen pelvis wo con DATE OF EXAM: 07/10/2021 COMPARISON: CT dated 02/06/2018 HISTORY: Calculus of kidney CT DLP: 1200 mGycm Automated exposure control for dose reduction was used. TECHNIQUE: Helical acquisition of images was performed from the lung bases through the pelvis. FINDINGS: LUNG BASES: Coronary arterial atherosclerotic calcifications. LIVER/GB: No significant abnormality is appreciated. PANCREAS: No significant abnormality is seen. SPLEEN: No significant abnormality is seen. ADRENALS: No significant abnormality is seen. KIDNEYS: 5 mm right ureterovesicular junction stone without significant dilatation of the right urete r or the right renal collecting system. Bilateral peripheral sized nonobstructing renal calculi at le ast 6 stones on each side and measuring up to 8mm on the right side and 7mm on the left side. Right r enal cysts without gross suspicious feature yet suboptimally assessed by this nonenhanced CT scan. No hydroureter or hydronephrosis bilaterally. No other gross urinary bladder abnormality. Unremarkable prostate and seminal vesicles. FREE AIR: No free air is visualized RETROPERITONEAL ADENOPATHY: None visualized PELVIC ADENOPATHY: Subcentimeter bilateral inguinal lymph nodes, nonspecific. OSSEOUS STRUCTURES: Bilateral L4-5 facet osteoarthropathy with grade 1 anterolisthesis of L4 over L5 . Retrolisthesis of L5 over S1. BOWEL: Unremarkable stomach, duodenum and small bowel. Colonic diverticulosis. Normal appendix. OTHER: Scattered arterial atherosclerotic calcifications. Sizable fat-containing umbilical hernia. No sizable ascites. IMPRESSION: 5 mm right ureterovesical junction stone without significant right-sided hydroureter or hydronephrosi s. Bilateral nonobstructing renal calculi as described above. Associated urinary tract infection can' t be excluded, please correlate with urinalysis results. Further urology consultation can be consider ed if clinically required. Other findings as described above.
== END | disposition home or self-care (01) ==
LOC: RADCTMAIN 12:13
PROVIDERS: ATTEND Urology
DX: N20.2 Calculus of kidney with calculus of ureter (principal)
CPT/HCPCS: 74176

== ENCOUNTER → 2022-02-15 | Outpatient (CLI) | payer MEDICARE, BC ==
[2022-02-15 18:10] LABS: HCT 46.4 % (39.6-50.0); HGB 15.7 g/dL (13.0-17.0); MCH 30.3 pg (27.0-32.0); MCHC 33.8 g/dL (32.0-37.0); MCV 89.4 fL (80.0-97.0); Mean Platelet Volume 9.3 fL (9.5-12.2); NRBC Per 100 WBC 0 /100 WBCS (0.0-0.0); Platelet Count 244 X 10*3/uL (140-440); RBC 5.19 X 10*6/uL (4.40-5.60); RDW 12.9 % (11.5-14.5); WBC 7.88 X 10*3/uL (4.50-10.00)
[2022-02-15 18:26] LABS: ALT 16 U/L (10-49); AST 16 U/L (14-35); African American GFR (CKD) 82.6 (60.0-200.0); Albumin 4.2 g/dL (3.8-4.9); Albumin/Globulin Ratio 1.59 (1.60-3.17); Alkaline Phosphatase 91 U/L (41-126); BUN/Creat Ratio 14.43 Ratio (12.00-20.00); Blood Urea Nitrogen 15.3 mg/dL (9.0-27.0); Carbon Dioxide 26.9 mmol/L (20.0-27.5); Chloride 104 mmol/L (96-109); Chol/HDL Ratio 3.42 Ratio; Globulin 2.7 g/dL (1.6-3.3); Glucose 101 mg/dL (70-110); LDL Cholesterol,Calculated 107.7 mg/dL (0.0-131.0); Non-African American GFR(CKD) 71.3 (60.0-200.0); Potassium 4.3 mmol/L (3.5-5.5); Sodium 141 mmol/L (135-145); Total Protein 6.9 g/dL (6.2-8.2); VLDL Calculation 17.56 mg/dL (5.00-40.00)
== END | disposition home or self-care (01) ==
LOC: LABWHC1 12:51
PROVIDERS: ATTEND Internal Medicine Clinical Cardiac Electrophysiology
DX: I10 Essential (primary) hypertension (principal); I25.10 Atherosclerotic heart disease of native coronary artery without angina pectoris; R53.83 Other fatigue
CPT/HCPCS: 36415; 80053; 80061; 84439; 84443; 85027

== ENCOUNTER → 2022-07-23 | Outpatient (CLI) | payer MEDICARE, BC ==
[2022-07-23 21:19] LABS: African American GFR (CKD) 58.6 (60.0-200.0); BUN/Creat Ratio 16.57 Ratio (12.00-20.00); Blood Urea Nitrogen 23.2 mg/dL (9.0-27.0); Carbon Dioxide 28.5 mmol/L (20.0-27.5); Chloride 100 mmol/L (96-109); Chol/HDL Ratio 4.08 Ratio; Glucose 102 mg/dL (70-110); LDL Cholesterol,Calculated 142.4 mg/dL (0.0-131.0); Non-African American GFR(CKD) 50.5 (60.0-200.0); Potassium 4.5 mmol/L (3.5-5.5); Sodium 141 mmol/L (135-145)
== END | disposition home or self-care (01) ==
LOC: LABWHC1 12:23
PROVIDERS: ATTEND Nurse Practitioner Adult Health
DX: I10 Essential (primary) hypertension (principal); E78.5 Hyperlipidemia, unspecified
CPT/HCPCS: 36415; 80048; 80061; 83735

== ENCOUNTER 2022-09-02 06:27 | Emergency (ER) | payer MEDICARE, BC ==
[2022-09-02 06:33] VITALS: RESP 18; TEMP 97.8
[2022-09-02] MEDS ORDERED: SODIUM CHLORIDE 0.9% 500 ML 500 ML IV STA (06:50)
[2022-09-02] MEDS ORDERED: SODIUM CHLORIDE 0.9% 1,000 ML IV STA (06:50)
[2022-09-02] MEDS ORDERED: ONDANSETRON 4 MG/2 ML VIAL IVP STA (06:50)
[2022-09-02] MEDS ORDERED: HYDROmorphone 0.5 MG/0.5 ML SYRINGE IVP STA ×3 (06:50→07:58)
[2022-09-02 07:02] LABS: Basophils % (A) 0 %; Eosinophils % (A) 0 %; HCT 49.5 % (39.0-53.0); HGB 16.4 gm/dL (13.0-17.5); Lymphocytes # (A) 0.9 k/uL (1.0-4.8); Lymphocytes % (A) 8 %; MCH 30.5 pg (25.0-35.0); MCHC 33.2 g/dL (31.0-37.0); MCV 91.9 fL (80.0-100.0); Mean Platelet Volume 6.9; Monocytes # (A) 0.4 k/uL (0-1.0); Monocytes % (A) 4 %; Neutrophils % (A) 87 %; Platelet Count 201 k/uL (150-450); RBC 5.38 m/uL (4.30-5.90); RDW 12.9 % (11.5-15.5); WBC 11.4 k/uL (3.8-10.6)
--- NOTE | 2022-09-02 07:06 | ED ---
Abdominal Pain HPI - General Chief Complaint: Abdominal Pain Stated Complaint: ABD PAIN Time Seen by Provider: 09/02/22 06:33 Source: patient, RN notes reviewed, old records reviewed Mode of arrival: wheelchair Limitations: no limitations - History of Present Illness Initial Comments: 72-year-old male presents emergency Department chief complaint of abdominal pain, nausea vomiting diarrhea. Patient states started earlier this morning. Patient states is diffuse abdominal pain. Patient states nonradiating denies any back pain flank pain, chest pain or shortness breath. Patient normally takes blood pressure medicine the morning states been unable take his blood pressure meds secondary to vomiting. Patient denies fevers or chills denies any dysuria hematuria patient states that his girlfriend had similar symptoms. Denies recent abdominal surgeries. - Related Data Home Medications Medication Instructions Recorded Confirmed Zolpidem [Ambien] 10 mg PO HS PRN 03/19/16 11/19/19 Doxazosin [Cardura] 4 mg PO HS 04/13/18 11/19/19 Methylphenidate HCl [Ritalin] 10 mg PO DAILY 04/13/18 11/19/19 ALPRAZolam [ALPRAZolam XR] 2 mg PO DAILY@1800 10/15/19 11/19/19 ALPRAZolam [Xanax] 1 mg PO QAM 10/15/19 11/19/19 Citalopram Hydrobromide 20 mg PO HS 10/15/19 11/19/19 [Citalopram HBr] HYDROcodone/APAP 5-325MG [[place] 1 tab PO Q6HR PRN 10/15/19 11/19/19 5-325] Previous Rx's Medication Instructions Recorded Aspirin 81 mg PO DAILY #30 chew 10/17/19 Atorvastatin [Lipitor] 80 mg PO HS #30 tab 10/17/19 Metoprolol Succinate (ER) [Toprol 25 mg PO DAILY #30 tab.er.24h 10/17/19 XL] Nitroglycerin Sl Tabs [Nitrostat] 0.4 mg SUBLINGUAL Q5M PRN #25 tab 10/17/19 Ticagrelor [Brilinta] 90 mg PO BID #60 tab 10/17/19 Losartan Potassium [Cozaar] 100 mg PO DAILY #0 11/20/19 Losartan [Cozaar] 100 mg PO DAILY tab 11/20/19 Nitroglycerin Sl Tabs [Nitrostat] 0.4 mg SUBLINGUAL Q5M PRN tab 11/20/19 Dicyclomine [Bentyl] 20 mg PO TID #30 tablet 09/02/22 Ondansetron Odt [Zofran Odt] 4 mg PO Q8HR PRN #10 tab 09/02/22 Allergies Allergy/AdvReac Type Severity Reaction Status Date / Time No Known Allergies Allergy Verified 11/16/19 11:58 Review of Systems ROS Statement: Those systems with pertinent positive or pertinent negative responses have been documented in the HPI. ROS Other: All systems not noted in ROS Statement are negative. Past Medical History Past Medical History: Hyperlipidemia, Hypertension, Myocardial Infarction ([place]) Additional Past Medical History / Comment(s): kidney stones. estrada leg pain Last Myocardial Infarction Date:: 2019 History of Any Multi-Drug Resistant Organisms: None Reported Past Surgical History: Heart Catheterization With Stent, Hernia Repair, Orthopedic Surgery Additional Past Surgical History / Comment(s): rtl Knee replacement Past Anesthesia/Blood Transfusion Reactions: Previous Problems w/ Anesthesia Additional Past Anesthesia/Blood Transfusion Reaction / Comment(s): WOKE UP DURING A COUPLE SURGERIES Date of Last Stent Placement:: 10/16/19 Past Psychological History: No Psychological Hx Reported Smoking Status: Former smoker Past Alcohol Use History: Occasional Past Drug Use History: None Reported - Past Family History Mother History Unknown: Yes General Exam General appearance: alert, in no apparent distress Head exam: Present: atraumatic, normocephalic, normal inspection Eye exam: Present: normal appearance, PERRL, EOMI. Absent: scleral icterus, conjunctival injection, periorbital swelling ENT exam: Present: normal exam, normal oropharynx, mucous membranes moist Neck exam: Present: normal inspection, full ROM. Absent: tenderness, meningismus, lymphadenopathy Respiratory exam: Present: normal lung sounds bilaterally. Absent: respiratory distress, wheezes, rales, rhonchi, stridor Cardiovascular Exam: Present: regular rate, normal rhythm, normal heart sounds. Absent: systolic murmur, diastolic murmur, rubs, gallop, clicks GI/Abdominal exam: Present: soft, tenderness, normal bowel sounds. Absent: distended, guarding, rebound, rigid Neurological exam: Present: alert Skin exam: Present: warm, dry, intact, normal color. Absent: rash Course Vital Signs 09/02/22 09/02/22 06:29 08:46 Temperature 97.8 F Pulse Rate 68 70 Respiratory 18 18 Rate Blood Pressure 209/109 112/70 O2 Sat by Pulse 97 93 L Oximetry Medical Decision Making - Medical Decision Making Was pt. sent in by a medical professional or institution (, GUERLINE, EXPORT FREIGHT MANAGER, urgent care, hospital, or assisted...) When possible be specific @ -No Did you speak to anyone other than the patient for history (EMS, parent, family, police, friend...)? What history was obtained from this source @ -No Did you review nursing and triage notes (agree or disagree)? Why? @ -I reviewed and agree with nursing and triage notes Were old charts reviewed (outside hosp., previous admission, EMS record, old EKG, old radiological studies, urgent care reports/EKG's, assisted records)? Report findings @ -No old charts were reviewed Differential Diagnosis (chest pain, altered mental status, abdominal pain women, abdominal pain men, vaginal bleeding, weakness, fever, dyspnea, syncope, heada josephine, dizziness, GI bleed, back pain, seizure, CVA, palpatations, mental health, musculoskeletal)? @ -nDifferential Abdominal Pain Men: Appendicitis, cholecystitis, diverticulosis, ischemic bowel, pancreatitis, hepatitis, UTI, gastroenteritis, AAA, incarcerated hernia, bowel obstruction, constipation, inflammatory bowel, hepatitis, peptic ulcer disease, splenic infarction, perforated viscus, testicular torsion, this is not meant to be an all-inclusive list EKG interpreted by me (3pts min.). @ -[None X-rays interpreted by me (1pt min.). @ -[None done CT interpreted by me (1pt min.). @ -[CT abdomen and pelvis shows no acute intra-abdominal process calcified ve ssels noted, U/S interpreted by me (1pt. min.). @ -[None done What testing was considered but not performed or refused? (CT, X-rays, U/S, labs)? Why? @ -[None What meds were considered but not given or refused? Why? @ -[None Did you discuss the management of the patient with other professionals (professionals i.e. , GUERLINE, EXPORT FREIGHT MANAGER, lab, RT, psych nurse, social media intern, garbage depot worker, teacher, workplace rehabilitation officer, caser up)? Give summary @ -[No Was smoking cessation discussed for >3mins.? @ -[No Was critical care preformed (if so, how long)? @ -[No Were there social determinants of health that impacted care today? How? (Homelessness, low income, unemployed, alcoholism, drug addiction, transportation, low edu. Level, literacy, decrease access to med. care, prison, rehab)? @ -[No Was there de-escalation of care discussed even if they declined (Discuss DNR or withdrawal of care, Hospice)? DNR status @ -[No What co-morbidities impacted this encounter? (DM, HTN, Smoking, COPD, CAD, Can cer, CVA, ARF, Chemo, Hep., AIDS, mental health diagnosis, sleep apnea, morbid obesity)? @ -[None Was patient admitted / discharged? Hospital course, mention meds given and route, prescriptions, significant lab abnormalities, going to OR and other pertinent info. @ Discharge patient was given antiemetics, IV fluids pain control. Symptoms a re greatly improved. Laboratory studies and CT were reviewed. No specific abnormality's. Patient we discharged with symptomatic control and close follow- up. Undiagnosed new problem with uncertain prognosis? @ -[No Drug Therapy requiring intensive monitoring for toxicity (Heparin, Nitro, Insulin, Cardizem)? @ -[No Were any procedures done? @ -No Diagnosis/symptom? @ Gastroenteritis Acute, or Chronic, or Acute on Chronic? @ Acute Uncomplicated (without systemic symptoms) or Complicated (systemic symptoms)? @ Uncomplicatedt Side effects of treatment? @ -[No Exacerbation, Progression, or Severe Exacerbation? @ -[No Poses a threat to life or bodily function? How? (Chest pain, [place], [place], pneumonia, PE, COPD, DKA, ARF, appy, cholecystitis, CVA, Diverticulitis, Homicidal, Suicidal, threat to staff... and all critical care pts) @ -No - Lab Data Result diagrams: 09/02/22 06:49 09/02/22 06:49 Lab Results 09/02/22 09/02/22 09/02/22 Range/Units 06:49 06:49 06:49 WBC 11.4 H (3.8-10.6) k/uL RBC 5.38 (4.30-5.90) m/uL Hgb 16.4 (13.0-17.5) gm/dL Hct 49.5 (39.0-53.0) % MCV 91.9 (80.0-100.0) fL MCH 30.5 (25.0-35.0) pg MCHC 33.2 (31.0-37.0) g/dL RDW 12.9 (11.5-15.5) % Plt Count 201 (150-450) k/uL MPV 6.9 Neutrophils % 87 % Lymphocytes % 8 % Monocytes % 4 % Eosinophils % 0 % Basophils % 0 % Neutrophils # 10.0 H (1.3-7.7) k/uL Lymphocytes # 0.9 L (1.0-4.8) k/uL Monocytes # 0.4 (0-1.0) k/uL Eosinophils # 0.0 (0-0.7) k/uL Basophils # 0.0 (0-0.2) k/uL Sodium 138 (137-145) mmol/L Potassium 4.1 (3.5-5.1) mmol/L Chloride 100 (98-107) mmol/L Carbon Dioxide 28 (22-30) mmol/L Anion Gap 10 mmol/L BUN 20 (9-20) mg/dL Creatinine 1.29 H (0.66-1.25) mg/dL Est GFR (CKD-EPI)AfAm 65 (>60 ml/min/1.73 sqM) Est GFR (CKD-EPI)NonAf 56 (>60 ml/min/1.73 sqM) Glucose 149 H (74-99) mg/dL Plasma Lactic Acid Rick 2.3 H* (0.7-2.0) mmol/L Calcium 9.3 (8.4-10.2) mg/dL Total Bilirubin 0.6 (0.2-1.3) mg/dL AST 26 (17-59) U/L ALT 27 (4-49) U/L Alkaline Phosphatase 85 (38-126) U/L Total Protein 7.2 (6.3-8.2) g/dL Albumin 4.4 (3.5-5.0) g/dL Amylase 54 (30-110) U/L Lipase 87 (23-300) U/L Urine Color Urine Appearance (Clear) Urine pH (5.0-8.0) Ur Specific Morgan (1.001-1.035) Urine Protein (Negative) Urine Glucose (UA) (Negative) Urine Ketones (Negative) Urine Blood (Negative) Urine Nitrite (Negative) Urine Bilirubin (Negative) Urine Urobilinogen (<2.0) mg/dL Ur Leukocyte Esterase (Negative) Urine RBC (0-5) /hpf Urine WBC (0-5) /hpf Urine Mucus (None) /hpf 09/02/22 Range/Units 08:46 WBC (3.8-10.6) k/uL RBC (4.30-5.90) m/uL Hgb (13.0-17.5) gm/dL Hct (39.0-53.0) % MCV (80.0-100.0) fL MCH (25.0-35.0) pg MCHC (31.0-37.0) g/dL RDW (11.5-15.5) % Plt Count (150-450) k/uL MPV Neutrophils % % Lymphocytes % % Monocytes % % Eosinophils % % Basophils % % Neutrophils # (1.3-7.7) k/uL Lymphocytes # (1.0-4.8) k/uL Monocytes # (0-1.0) k/uL Eosinophils # (0-0.7) k/uL Basophils # (0-0.2) k/uL Sodium (137-145) mmol/L Potassium (3.5-5.1) mmol/L Chloride (98-107) mmol/L Carbon Dioxide (22-30) mmol/L Anion Gap mmol/L BUN (9-20) mg/dL Creatinine (0.66-1.25) mg/dL Est GFR (CKD-EPI)AfAm (>60 ml/min/1.73 sqM) Est GFR (CKD-EPI)NonAf (>60 ml/min/1.73 sqM) Glucose (74-99) mg/dL Plasma Lactic Acid Rick (0.7-2.0) mmol/L Calcium (8.4-10.2) mg/dL Total Bilirubin (0.2-1.3) mg/dL AST (17-59) U/L ALT (4-49) U/L Alkaline Phosphatase (38-126) U/L Total Protein (6.3-8.2) g/dL Albumin (3.5-5.0) g/dL Amylase (30-110) U/L Lipase (23-300) U/L Urine Color Yellow Urine Appearance Clear (Clear) Urine pH 7.5 (5.0-8.0) Ur Specific Morgan 1.015 (1.001-1.035) Urine Protein 1+ H (Negative) Urine Glucose (UA) Negative (Negative) Urine Ketones Negative (Negative) Urine Blood Negative (Negative) Urine Nitrite Negative (Negative) Urine Bilirubin Negative (Negative) Urine Urobilinogen <2.0 (<2.0) mg/dL Ur Leukocyte Esterase Negative (Negative) Urine RBC 1 (0-5) /hpf Urine WBC <1 (0-5) /hpf Urine Mucus Rare H (None) /hpf Disposition Clinical Impression: Gastroenteritis Disposition: HOME SELF-CARE Condition: Stable Instructions (If sedation given, give patient instructions): Gastroenteritis (ED) Additional Instructions: Please return to the Emergency Department if symptoms worsen or any other concerns. Prescriptions: Dicyclomine [Bentyl] 20 mg PO TID #30 tablet Ondansetron Odt [Zofran Odt] 4 mg PO Q8HR PRN #10 tab PRN Reason: Nausea Is patient prescribed a controlled substance at d/c from ED?: No Referrals: Isauro Duarte MD [Primary Care Provider] - 1-2 days Time of Disposition: 09:11
[2022-09-02 07:25] LABS: Albumin 4.4 g/dL (3.5-5.0); Calcium 9.3 mg/dL (8.4-10.2); Potassium 4.1 mmol/L (3.5-5.1); Total Bilirubin 0.6 mg/dL (0.2-1.3); Total Protein 7.2 g/dL (6.3-8.2)
[2022-09-02] MEDS ORDERED: KETOROLAC 15 MG/ML 1 ML VIAL IVP STA (07:31)
[2022-09-02 08:47] VITALS: BP 112/70; PULSE 70
--- NOTE | 2022-09-02 08:47 | CT ---
EXAMINATION TYPE: CT abdomen pelvis w con CT DLP: 2431.7 mGycm, Automated exposure control for dose reduction was used. DATE OF EXAM: 09/02/2022 8:35 AM COMPARISON: CT abdomen pelvis most recent from 07/10/2021 CLINICAL INDICATION:Male, 72 years old with history of pain; generalized pain, nausea and vomiting TECHNIQUE: Axial CT of the abdomen and pelvis. Sagittal and coronal reformats were created on a [employer] workstation. Contrast used:100 mL of Isovue 300 with IV Contrast, Oral contrast used: without Oral Contrast FINDINGS: LOWER CHEST: Coronary artery atherosclerosis which is severe. Mild paraseptal emphysema changes. ABDOMEN LIVER: Unremarkable GALLBLADDER AND BILE DUCTS: Unremarkable. PANCREAS: Unremarkable. SPLEEN: Unremarkable. ADRENAL GLANDS: Unremarkable. KIDNEYS AND URETERS: Right renal cyst. Right renal nonobstructing calculi measuring up tor 10 mm and on the left measuring up to 7 mm. No evidence of obstructive uropathy. PELVIS BLADDER: Unremarkable REPRODUCTIVE: Unremarkable. ABDOMEN & PELVIS STOMACH AND BOWEL: No evidence of bowel obstruction. Few scattered colonic diverticula present. Appen wil is normal. PERITONEUM/RETROPERITONEUM: No evidence of pneumoperitoneum or free fluid. VASCULATURE: No evidence of aortic aneurysm. Mild atherosclerosis of the arterial vasculature. MUSCULOSKELETAL: No acute osseous abnormalities, multilevel disc degeneration changes throughout the spine. LYMPH NODES: No gross evidence for lymphadenopathy. SOFT TISSUE/ABDOMINAL WALL: Fat-containing umbilical hernia. IMPRESSION: 1. No evidence for acute abdominal process to explain the patient's pain. 2. Colonic diverticulosis. 3. Fat-containing buccal hernia. 4. Bilateral nonobstructing renal calculi. 5. Right simple appearing renal cysts. 6. Severe coronary atherosclerosis.
[2022-09-02 08:58] LABS: Appearance,Urine Clear (Clear); Bilirubin,Urine Negative (Negative); Blood,Urine Negative (Negative); Color,Urine Yellow; Glucose,Urine (UA) Negative (Negative); Ketones,Urine Negative (Negative); Leukocyte Esterase,Urine Negative (Negative); Mucus,Urine Rare /hpf; Nitrite,Urine Negative (Negative); PH, Urine 7.5 (5.0-8.0); Protein,Urine 1+ (Negative); RBC,Urine 1 /hpf (0-5); Specific Gravity,Urine 1.015 (1.001-1.035); Urobilinogen,Urine <2.0 mg/dL (<2.0); WBC,Urine <1 /hpf (0-5)
== END 2022-09-02 09:35 | disposition home or self-care (01) ==
LOC: EC 06:27
DX: K52.9 Noninfective gastroenteritis and colitis, unspecified (principal); I10 Essential (primary) hypertension; I25.2 Old myocardial infarction; Z79.899 Other long term (current) drug therapy; Z87.891 Personal history of nicotine dependence
CPT/HCPCS: 36415; 80053; 82150; 83605; 83690; 85025; 81001; 74177; 99284; 96374; 96375 ×2; 96376; 96361 ×2; J2405; J1885; J1170; Q9967; 99285

== ENCOUNTER → 2023-09-08 | Outpatient (CLI) | payer MEDICARE, BC ==
[2023-09-08 18:07] LABS: Basophils # (A) 0.05 X 10*3/uL (0.00-0.10); Basophils % (A) 0.6 %; Eosinophils % (A) 1.1 %; HCT 50.4 % (39.6-50.0); HGB 16.7 g/dL (13.0-17.0); Lymphocytes # (A) 1.51 X 10*3/uL (0.90-5.00); Lymphocytes % (A) 17.2 %; MCH 30.2 pg (27.0-32.0); MCHC 33.1 g/dL (32.0-37.0); MCV 91.1 FL (80.0-97.0); Mean Platelet Volume 9.2 FL (9.5-12.2); Monocytes # (A) 0.64 X 10*3/uL (0.20-1.00); Monocytes % (A) 7.3 %; NRBC Per 100 WBC 0 X 10*3/uL (0.00-0.01); Neutrophils # (A) 6.43 X 10*3/uL (1.80-7.70); Neutrophils % (A) 73.3 %; Platelet Count 259 X 10*3/uL (140-440); RBC 5.53 X 10*6/uL (4.40-5.60); RDW 12.9 % (11.5-14.5); WBC 8.77 X 10*3/uL (4.50-10.00)
[2023-09-08 21:06] LABS: ALT 30 U/L (10-49); AST 25 U/L (14-35); Albumin 4.6 g/dL (3.8-4.9); Albumin/Globulin Ratio 1.92 Ratio (1.60-3.17); Alkaline Phosphatase 87 U/L (41-126); BUN/Creat Ratio 10.33 Ratio (12.00-20.00); Blood Urea Nitrogen 12.4 mg/dL (9.0-27.0); Carbon Dioxide 24.1 mmol/L (21.6-31.8); Chloride 100 mmol/L (96-109); Chol/HDL Ratio 4.86 Ratio; Globulin 2.4 g/dL (1.6-3.3); Glucose 110 mg/dL (70-110); LDL Cholesterol,Calculated 172.7 mg/dL (0.0-131.0); PSA Annual Screen 0.381 ng/mL (0.000-4.000); Potassium 4.3 mmol/L (3.5-5.5); Sodium 138 mmol/L (135-145); Total Bilirubin 0.5 mg/dL (0.3-1.2)
== END | disposition home or self-care (01) ==
LOC: LABWHC1 12:47
PROVIDERS: ATTEND Family Medicine
DX: Z00.00 Encounter for general adult medical examination without abnormal findings (principal); Z12.5 Encounter for screening for malignant neoplasm of prostate; I10 Essential (primary) hypertension; E78.00 Pure hypercholesterolemia, unspecified; E55.9 Vitamin D deficiency, unspecified
CPT/HCPCS: 80061; 80053; 84443; 85025; 82306; 36415; G0103

== ENCOUNTER → 2023-11-24 | Outpatient (CLI) | payer MEDICARE, BC | END | disposition home or self-care (01) | LOC: LABWHC1 11:20 | DX: E78.5 Hyperlipidemia, unspecified (principal) | CPT/HCPCS: 36415; 80061 ==

== ENCOUNTER 2024-03-27 12:36 | Observation (INO) | payer MEDICARE, BC ==
--- NOTE | 2024-03-27 13:00 | ED ---
Chest Pain HPI - General Source: patient, RN notes reviewed Mode of arrival: ambulatory Limitations: no limitations <Felicia Manning - Last Filed: 03/27/24 12:59> - General Source: RN notes reviewed, old records reviewed Mode of arrival: ambulatory Limitations: no limitations - History of Present Illness MD Complaint: chest pain -: days(s) Pain Location: substernal Pain Radiation: none Severity: moderate Severity scale (1-10): 4 Quality: tightness Consistency: constant Improves With: nothing Worsens With: nothing Anginal Symptoms: sense of impending doom Other Symptoms: palpitations Treatments Prior to Arrival: none <Edison Simmons - Last Filed: 04/02/24 22:03> - General Chief Complaint: Chest Pain Stated Complaint: Chest pain Time Seen by Provider: 03/27/24 12:50 - History of Present Illness Initial Comments: Quick [id number] male history of CAD and VA with multiple stent placement presenting to emergency room chief complaint of chest pain has been worsening since Tuesday. States that the pain will intermittently radiate down his left arm into his jaw. Endorses worsening dyspnea on exertion over the past week. Denies shortness of breath. (Felicia Manning) This is a 73-year-old male with history of CAD VA multiple stents coming in for chest pain today. Initially pain appeared on Tuesday and then occurred again today which is remaining persistent to his jaw heaviness on his chest (Edison Simmons) - Related Data Home Medications Medication Instructions Recorded Confirmed ALPRAZolam [Xanax] 1 mg PO BID PRN 10/15/19 03/27/24 Clopidogrel [Plavix] 75 mg PO DAILY 03/27/24 03/27/24 Ezetimibe [Zetia] 10 mg PO DAILY 03/27/24 03/27/24 HYDROcodone/APAP 10-325MG [[place] 1 tab PO Q6HR PRN 03/27/24 03/27/24 10-325] Tamsulosin [Flomax] 0.4 mg PO DAILY 03/27/24 03/27/24 Triamterene/Hydrochlorothiazid 1 tab PO DAILY 03/27/24 03/27/24 [Triamterene-Hctz 37.5-25 mg Tb] Previous Rx's Medication Instructions Recorded Nitroglycerin Sl Tabs [Nitrostat] 0.4 mg SUBLINGUAL Q5M PRN tab 11/20/19 Aspirin 81 mg PO DAILY #90 tab 03/29/24 Atorvastatin [Lipitor] 80 mg PO DAILY #90 tab 03/29/24 Losartan [Cozaar] 25 mg PO HS #90 tab 03/29/24 Metoprolol Tartrate [Lopressor] 25 mg PO BID #180 tab 03/29/24 Allergies Allergy/AdvReac Type Severity Reaction Status Date / Time No Known Allergies Allergy Verified 03/27/24 16:56 Review of Systems ROS Other: All systems not noted in ROS Statement are negative. <Felicia Manning - Last Filed: 03/27/24 12:59> ROS Other: All systems not noted in ROS Statement are negative. <Edison Simmons - Last Filed: 04/02/24 22:03> ROS Statement: Those systems with pertinent positive or pertinent negative responses have been documented in the HPI. EKG Findings - EKG Comments: EKG Findings:: EKG is sinus 72 IA 161 QRS 101 QTc 427 - EKG Results: EKG: interpreted by ERMD <Edison Simmons - Last Filed: 04/02/24 22:03> Past Medical History Past Medical History: Hyperlipidemia, Hypertension, Myocardial Infarction ([place]) Additional Past Medical History / Comment(s): kidney stones. estrada leg pain Last Myocardial Infarction Date:: 2019 History of Any Multi-Drug Resistant Organisms: None Reported Past Surgical History: Heart Catheterization With Stent, Hernia Repair, Orthopedic Surgery Additional Past Surgical History / Comment(s): rtl Knee replacement Past Anesthesia/Blood Transfusion Reactions: Previous Problems w/ Anesthesia Additional Past Anesthesia/Blood Transfusion Reaction / Comment(s): WOKE UP DURING A COUPLE SURGERIES Date of Last Stent Placement:: 10/16/19 Past Psychological History: No Psychological Hx Reported Smoking Status: Former smoker Past Alcohol Use History: Occasional Past Drug Use History: None Reported - Past Family History Mother History Unknown: Yes <Felicia Manning - Last Filed: 03/27/24 12:59> - Past Family History Father Family Medical History: Cancer, Myocardial Infarction ([place]) Additional Family Medical History / Comment(s): Brain cancer Sister(s) Family Medical History: Diabetes Mellitus <Edison Simmons - Last Filed: 04/02/24 22:03> General Exam Limitations: no limitations <Felicia Manning - Last Filed: 03/27/24 12:59> General appearance: alert, in no apparent distress Head exam: Present: atraumatic, normocephalic, normal inspection Eye exam: Present: normal appearance, PERRL, EOMI. Absent: scleral icterus, conjunctival injection, periorbital swelling ENT exam: Present: normal exam, mucous membranes moist Neck exam: Present: normal inspection. Absent: tenderness, meningismus, lymphadenopathy Respiratory exam: Present: normal lung sounds bilaterally. Absent: respiratory distress, wheezes, rales, rhonchi, stridor Cardiovascular Exam: Present: regular rate, normal rhythm, normal heart sounds. Absent: systolic murmur, diastolic murmur, rubs, gallop, clicks GI/Abdominal exam: Present: soft, normal bowel sounds. Absent: distended, tenderness, guarding, rebound, rigid Extremities exam: Present: normal inspection, full ROM, normal capillary refill. Absent: tenderness, pedal edema, joint swelling, calf tenderness Back exam: Present: normal inspection Neurological exam: Present: alert, oriented X3, CN II-XII intact Psychiatric exam: Present: normal affect, normal mood Skin exam: Present: warm, dry, intact, normal color. Absent: rash <Edison Simmons - Last Filed: 04/02/24 22:03> - General Exam Comments Initial Comments: Visual Physical Exam Vital signs reviewed General: Well-appearing, nontoxic, no acute distress. Head: Normocephalic, atraumatic Eyes: PERRLA, EOMI ENT: Airway patent Chest: Nonlabored breathing Skin: No visual rash, normal skin tone Neuro: Alert and oriented 3 Musculoskeletal: No gross abnormalities (Stieler,Felicia) Course <Edison Simmons - Last Filed: 04/02/24 22:03> Vital Signs 03/27/24 03/27/24 03/27/24 12:39 19:52 20:00 Temperature 97.6 F 97.9 F 98.1 F Pulse Rate 69 58 L Pulse Rate [ 84 Left Supine Pulse Oximetery ] Respiratory 18 16 17 Rate Blood Pressure 176/86 144/87 Blood Pressure 133/84 [Left Arm Supine] O2 Sat by Pulse 96 95 97 Oximetry 03/27/24 22:14 Temperature Pulse Rate 56 L Pulse Rate [ Left Supine Pulse Oximetery ] Respiratory 16 Rate Blood Pressure Blood Pressure [Left Arm Supine] O2 Sat by Pulse 95 Oximetry - Reevaluation(s) Reevaluation #1: 03/27/24 15:59 medical record is reviewed (Edison Simmons) Reevaluation #2: 03/27/24 15:59 Chest pain here in the ER (Edison Simmons) Reevaluation #3: 03/27/24 15:59 Patient informed of results and questions (Edison Simmons) Reevaluation #4: Was pt. sent in by a medical professional or institution (GUERLINE López, ROTARY RIG ENGINE OPERATOR, urgent care, hospital, or alf...) When possible be specific @ -no Did you speak to anyone other than the patient for history (EMS, parent, family, police, friend...)? What history was obtained from this source @ -no Did you review nursing and triage notes (agree or disagree)? Why? @ -agree Are old charts reviewed (outside hosp., previous admission, EMS record, old EKG, old radiological studies, urgent care reports/EKG's, alf records)? Report findings @ -yes Differential Diagnosis (chest pain, altered mental status, abdominal pain women, abdominal pain men, vaginal bleeding, weakness, fever, dyspnea, syncope, headache, dizziness, GI bleed, back pain, seizure, CVA, palpatations, mental health, musculoskeletal)? @ -prior EKG interpreted by me (3pts min.). @ -yes X-rays interpreted by me (1pt min.). @ -yes negative for acute disease CT interpreted by me (1pt min.). @ -no U/S interpreted by me (1pt. min.). @ -no What testing was considered but not performed or refused? (CT, X-rays, U/S, labs)? Why? @ -none What meds were considered but not given or refused? Why? @ -none Did you discuss the management of the patient with other professionals (professionals i.e. GUERLINE López, ROTARY RIG ENGINE OPERATOR, lab, RT, psych nurse, rn social services, network firewall engineer, teacher, credit compliance officer, case sealer)? Give summary @ -no Was smoking cessation discussed for >3mins.? @ -no Was critical care preformed (if so, how long)? @ -yes31 Were there social determinants of health that impacted care today? How? (Homelessness, low income, unemployed, alcoholism, drug addiction, transportation, low edu. Level, literacy, decrease access to med. care, [place] [facility], rehab)? @ -none Was there de-escalation of care discussed even if they declined (Discuss DNR or withdrawal of care, Hospice)? DNR status @ -no What co-morbidities impacted this encounter? (DM, HTN, Smoking, COPD, CAD, Cancer, CVA, ARF, Chemo, Hep., AIDS, mental health diagnosis, sleep apnea, morbid obesity)? @ -none Was patient admitted / discharged? Hospital course, mention meds given and route, prescriptions, significant lab abnormalities, going to OR and other pertinent info. @ -73 male to the ER for evaluation of chest pain history of CAD coming in for uncontrolled chest pain unstable angina Admitted Undiagnosed new problem with uncertain prognosis? @ -no Drug Therapy requiring intensive monitoring for toxicity (Heparin, Nitro, Insulin, Cardizem)? @ -no Were any procedures done? @ -no Diagnosis/symptom? @ -Pain, CAD, unstable angina Acute, or Chronic, or Acute on Chronic? @ -Acute Uncomplicated (without systemic symptoms) or Complicated (systemic symptoms)? @ -Complicated Side effects of treatment? @ -no Exacerbation, Progression, or Severe Exacerbation? @ -exacerbation Poses a threat to life or bodily function? How? (Chest pain, [place], VA, pneumonia, PE, COPD, DKA, ARF, appy, cholecystitis, CVA, Diverticulitis, Homicidal, Suicida l, threat to staff... and all critical care pts) @ -yes with chest pain 2 (Edison Simmons) Reevaluation #5: Differential Chest Pain: Stable Angina, Unstable Angina, STEMI, NSTEMI Aortic Dissection, Pneumothorax, Musculoskeletal, Esophageal Spasm GERD, Cholecystitis, Pancreatitis, Zoster, this is not meant to be an all-inclusive list. (Edison Simmons) - Consultations Consultation #1: spoke w [facility] to be admitted (Edison Simmons) Chest Pain MDM <Felicia Manning - Last Filed: 03/27/24 12:59> <Edison Simmons - Last Filed: 04/02/24 22:03> - MDM I completed the quick note portion of this chart signed Felicia Manning PA-C (Felicia Manning) 73 male to the ER for evaluation of chest pain history of CAD coming in for uncontrolled chest pain unstable angina (Edison Simmons) Critical Care Time Critical Care Time: Yes Total Critical Care Time: 31 <Edison Simmons - Last Filed: 04/02/24 22:03> Disposition <Felicia Manning - Last Filed: 03/27/24 12:59> Is patient prescribed a controlled substance at d/c from ED?: No Time of Disposition: 16:00 <Edison Simmons - Last Filed: 04/02/24 22:03> Clinical Impression: Chest pain, Unstable angina Disposition: ADMITTED IP TO THIS HOSP Condition: Serious
--- NOTE | 2024-03-27 13:16 | XR ---
EXAMINATION TYPE: XR chest 2V DATE OF EXAM: 03/27/2024 1:08 PM COMPARISON: 10/15/2019 CLINICAL INDICATION: Male, 73 years old with history of Chest Pain, TECHNIQUE: Frontal and lateral views of the chest are obtained. FINDINGS: There is no focal air space opacity, pleural effusion, or pneumothorax seen. The cardiac silhouette size is within normal limits. The osseous structures are intact. IMPRESSION: No acute cardiopulmonary process. [facility], , 03/27/2024 1:14 PM
[2024-03-27 14:08] LABS: Basophils # (A) 0.1 k/uL (0-0.2); Basophils % (A) 1 %; Eosinophils # (A) 0.2 k/uL (0-0.7); Eosinophils % (A) 2 %; HCT 48.5 % (39.0-53.0); HGB 15.6 gm/dL (13.0-17.5); Lymphocytes # (A) 1.5 k/uL (1.0-4.8); Lymphocytes % (A) 22 %; MCH 29.8 pg (25.0-35.0); MCHC 32.1 g/dL (31.0-37.0); MCV 92.6 fL (80.0-100.0); Mean Platelet Volume 6.9; Monocytes # (A) 0.5 k/uL (0-1.0); Monocytes % (A) 7 %; Neutrophils # (A) 4.6 k/uL (1.3-7.7); Neutrophils % (A) 67 %; Platelet Count 215 k/uL (150-450); RBC 5.24 m/uL (4.30-5.90); RDW 12.8 % (11.5-15.5)
[2024-03-27 14:22] LABS: Partial Thromboplastin Time 24.6 sec (22.0-30.0); Prothrombin Time 11.1 sec (10.0-12.5)
[2024-03-27 14:35] LABS: ALT 25 U/L (4-49); AST 23 U/L (17-59); African American GFR (CKD) 68 (>60 ml/min/1.73 sqM); Albumin 4.3 g/dL (3.5-5.0); Alkaline Phosphatase 70 U/L (38-126); Anion Gap 7 mmol/L; Blood Urea Nitrogen 18 mg/dL (9-20); Calcium 9.4 mg/dL (8.4-10.2); Carbon Dioxide 31 mmol/L (22-30); Chloride 104 mmol/L (98-107); Glucose 101 mg/dL (74-99); Lipase 98 U/L (23-300); Magnesium 2.2 mg/dL (1.6-2.3); Non-African American GFR(CKD) 59 (>60 ml/min/1.73 sqM); Sodium 142 mmol/L (137-145); Total Bilirubin 0.5 mg/dL (0.2-1.3); Total Protein 6.5 g/dL (6.3-8.2)
[2024-03-27 14:41] LABS: NT-Pro-B-Type Natriuretic Pept 21 pg/mL
[2024-03-27] MEDS ORDERED: MORPHINE SULFATE 4 MG/ML SYRINGE IV PRN (15:56)
[2024-03-27] MEDS ORDERED: NITROGLYCERIN SL TABS 0.4 MG TAB SUBLINGUAL PRN (15:56)
[2024-03-27] MEDS: HEPARIN SODIUM 1,000 UN/ML (10ML VL) IVP ONE (16:42)
[2024-03-27] MEDS: HEPARIN SODIUM 1,000 UN/ML (10ML VL) IV ONE (16:43)
[2024-03-27] MEDS: HEPARIN SOD,PORK IN 0.45% NACL 25,000 UNIT in 0.45% NACL 1 250ML.BAG IV SCH (16:43)
[2024-03-27] MEDS: ASPIRIN 81 MG PO STA (16:49)
[2024-03-27] MEDS: NITROGLYCERIN OINT 1 INCH/GM PACKET TOPICAL SCH (18:54)
[2024-03-27] MEDS: METOPROLOL TARTRATE 25 MG TAB PO SCH (20:06)
[2024-03-27] MEDS: HEPARIN SODIUM 1,000 UN/ML (10ML VL) IV PRN (23:05)
[2024-03-28] MEDS ORDERED: ALPRAZolam 0.25 MG TAB PO PRN (07:58)
[2024-03-28] MEDS ORDERED: NITROGLYCERIN SL TABS 0.4 MG TAB SUBLINGUAL PRN (07:58)
[2024-03-28] MEDS ORDERED: ALPRAZolam 0.5 MG TAB PO PRN (07:58)
[2024-03-28] MEDS: ATORVASTATIN 80 MG TAB PO STA (08:24)
[2024-03-28] MEDS: ASPIRIN 325 MG TAB PO STA (08:25)
[2024-03-28] MEDS: SODIUM CHLORIDE 0.9% 1,000 ML in EMPTY BAG 1 BAG IV SCH (08:27)
[2024-03-28 08:44] LABS: Platelet Count 219 X 10*3/uL (140-440)
--- NOTE | 2024-03-28 08:47 | P.CRDCN ---
History of Present Illness History of present illness: HISTORY OF PRESENT ILLNESS: This is a 73-year-old male with a past medical history significant for coronary artery disease with previous stenting, hypertension, hyperlipidemia, and obesit y. Patient follows in the office with Dr. Kay. We have been asked to see the patient in consultation for chest pain. Patient examined at the bedside. Patient presented to the hospital with a chief complaint of chest discomfort. Patient states he has been having chest pain with radiation to his jaw and to his left arm. He also reports associated shortness of breath. At the time of examination, the patient denies chest pain or pressure. Vital signs are stable. DIAGNOSTICS: - EKG reveals sinus mechanism with no signs of acute ischemia - Chest xray negative for acute process - Laboratory data: WBC 7.0. Hemoglobin 15.6. Platelet count 215. Sodium 142. Potassium 4.0. BUN 18. Creatinine 1.23. Magnesium 2.2. Troponin negative x 3. proBNP 21. - Current home cardiac medications include metoprolol succinate 25 mg daily, Plavix 75 mg daily, Zetia 10 mg daily - Patient underwent Lexiscan stress test in March 2022 which was negative for ischemia - Most recent echocardiogram obtained in 2019 reveals ejection fraction 55 to 60%, mild MR, mild TR - Cardiac catheterization history: November 2019 with stenting of the PLV branch of the RCA, mid RCA, and marginal branch REVIEW OF SYSTEMS: At the time of my exam: CONSTITUTIONAL: Denies fever or chills. HEENT: Denies blurred vision, vision changes, or eye pain. Denies hemoptysis CARDIOVASCULAR: Denies chest pain. Denies orthopnea. Denies PND. Denies palpitations RESPIRATORY: Denies shortness of breath. GASTROINTESTINAL: Denies abdominal pain. Denies nausea or vomiting. HEMATOLOGIC: Denies bleeding disorders. GENITOURINARY: Denies any blood in urine. SKIN: Denies pruitis. Denies rash. PHYSICAL EXAM: VITAL SIGNS: Reviewed. GENERAL: Well-developed in no acute distress. HEENT: Head is normocephalic. Pupils are equal, round. Sclerae anicteric. Mucous membranes of the mouth are moist. Neck supple. No JVD or thyromegaly LUNGS: Respirations even and unlabored. Lungs essentially clear to auscultation bilaterally. HEART: Regular rate and rhythm. S1 and S2 heard. ABDOMEN: Soft. Nondistended. Nontender. EXTREMITIES: Normal range of motion. No clubbing or cyanosis. Peripheral pulses intact. No lower extremity edema NEUROLOGIC: Awake and alert. Oriented x 3. ASSESSMENT: Unstable angina Coronary artery disease with previous stenting of the circumflex and RCA Hypertension Hyperlipidemia with previous statin intolerance Morbid obesity: BMI 43.6 PLAN: Obtain 2D echo to assess cardiac structure and function Discontinue IV heparin Resume home cardiac medications Add aspirin 81 mg daily Patient to undergo cardiac catheterization today with Dr. South Further recommendations pending patient course Nurse practitioner note has been reviewed by physician. Signing provider agrees with the documented findings, assessment, and plan of care documented by DENTAL CREAM MAKER as a scribe. Past Medical History Past Medical History: Hyperlipidemia, Hypertension, Myocardial Infarction ([place]) Additional Past Medical History / Comment(s): kidney stones, estrada leg pain Last Myocardial Infarction Date:: 2019 History of Any Multi-Drug Resistant Organisms: None Reported Past Surgical History: Heart Catheterization With Stent, Hernia Repair, Orthopedic Surgery Additional Past Surgical History / Comment(s): rt Knee replacement Past Anesthesia/Blood Transfusion Reactions: Previous Problems w/ Anesthesia Additional Past Anesthesia/Blood Transfusion Reaction / Comment(s): WOKE UP DURING A COUPLE SURGERIES Date of Last Stent Placement:: 10/16/19 Past Psychological History: No Psychological Hx Reported Smoking Status: Former smoker Past Alcohol Use History: Occasional Additional Past Alcohol Use History / Comment(s): QUIT SMOKING 1985, SMOKED ONE AND 1/2PPD FOR APPROX 6 YRS Past Drug Use History: None Reported - Past Family History Mother History Unknown: Yes Family Medical History: Cancer, CVA/TIA Additional Family Medical History / Comment(s): Colon cancer Father Family Medical History: Cancer, Myocardial Infarction ([place]) Additional Family Medical History / Comment(s): Brain cancer Sister(s) Family Medical History: Diabetes Mellitus Medications and Allergies Home Medications Medication Instructions Recorded Confirmed Type Zolpidem [Ambien] 10 mg PO HS PRN 03/19/16 03/27/24 History ALPRAZolam [Xanax] 1 mg PO BID PRN 10/15/19 03/27/24 History Metoprolol Succinate (ER) [Toprol 25 mg PO DAILY #30 tab.er.24h 10/17/19 03/27/24 Rx XL] Nitroglycerin Sl Tabs [Nitrostat] 0.4 mg SUBLINGUAL Q5M PRN tab 11/20/19 03/27/24 Rx Clopidogrel [Plavix] 75 mg PO DAILY 03/27/24 03/27/24 History Ezetimibe [Zetia] 10 mg PO DAILY 03/27/24 03/27/24 History HYDROcodone/APAP 10-325MG [[place] 1 tab PO Q6HR PRN 03/27/24 03/27/24 History 10-325] Tamsulosin [Flomax] 0.4 mg PO DAILY 03/27/24 03/27/24 History Triamterene/Hydrochlorothiazid 1 tab PO DAILY 03/27/24 03/27/24 History [Triamterene-Hctz 37.5-25 mg Tb] Allergies Allergy/AdvReac Type Severity Reaction Status Date / Time No Known Allergies Allergy Verified 03/27/24 16:56 Physical Exam Vitals: Vital Signs Temp Pulse Pulse Pulse Resp BP BP 03/28/24 07:00 98.1 F 65 18 160/84 03/28/24 02:00 97.5 F L 68 17 156/88 03/27/24 22:14 56 L 16 03/27/24 20:00 98.1 F 84 17 133/84 03/27/24 19:52 97.9 F 58 L 16 144/87 03/27/24 12:39 97.6 F 69 18 176/86 Pulse Ox 03/28/24 07:00 96 03/28/24 02:00 97 03/27/24 22:14 95 03/27/24 20:00 97 03/27/24 19:52 95 03/27/24 12:39 96 Intake and Output 03/27/24 03/28/24 03/28/24 22:59 06:59 14:59 Intake Total 62.962 Balance 62.962 Intake: Intake, IV Titration 62.962 Amount Heparin Sod,Pork in 0.45% 62.962 NaCl 25,000 unit In 0.45 % NaCl 1 250ml.bag @ 8.16 UNITS/KG/HR 9.994 mls/hr IV .Q24H [facility] Rx#: [id number] Other: Voiding Method Toilet # Voids 1 3 Weight 122.47 kg Results 03/27/24 13:14 03/27/24 13:14 Cardiac Enzymes 03/27/24 03/27/24 03/27/24 Range/Units 13:14 13:14 16:01 AST 23 (17-59) U/L Troponin I <0.012 <0.012 (0.000-0.034) ng/mL 03/27/24 Range/Units 18:29 AST (17-59) U/L Troponin I <0.012 (0.000-0.034) ng/mL Coagulation 03/27/24 03/27/24 03/27/24 Range/Units 13:14 16:01 21:52 PT 11.1 (10.0-12.5) sec APTT 24.6 24.1 39.1 H (22.0-30.0) sec 03/28/24 03/28/24 Range/Units 04:15 07:18 PT (10.0-12.5) sec APTT 52.1 H 50.6 H (22.0-30.0) sec CBC 03/27/24 Range/Units 13:14 WBC 7.0 (3.8-10.6) k/uL RBC 5.24 (4.30-5.90) m/uL Hgb 15.6 (13.0-17.5) gm/dL Hct 48.5 (39.0-53.0) % Plt Count 215 (150-450) k/uL Comprehensive Metabolic Panel 03/27/24 Range/Units 13:14 Sodium 142 (137-145) mmol/L Potassium 4.0 (3.5-5.1) mmol/L Chloride 104 (98-107) mmol/L Carbon Dioxide 31 H (22-30) mmol/L BUN 18 (9-20) mg/dL Creatinine 1.23 (0.66-1.25) mg/dL Glucose 101 H (74-99) mg/dL Calcium 9.4 (8.4-10.2) mg/dL AST 23 (17-59) U/L ALT 25 (4-49) U/L Alkaline Phosphatase 70 (38-126) U/L Total Protein 6.5 (6.3-8.2) g/dL Albumin 4.3 (3.5-5.0) g/dL Current Medications Generic Name Dose Route Start Last Admin Trade Name Freq PRN Reason Stop Dose Admin Alprazolam 0.25 mg 03/28/24 07:58 Alprazolam 0.25 Mg Tab PO Q6HR PRN Mild Anxiety Alprazolam 0.5 mg 03/28/24 07:58 Alprazolam 0.5 Mg Tab PO Q6HR PRN Moderate Anxiety Aspirin 81 mg 03/29/24 09:00 Aspirin 81 Mg PO DAILY [facility] Atorvastatin Calcium 80 mg 03/28/24 09:00 Atorvastatin 80 Mg Tab PO DAILY [facility] Heparin Sodium (Porcine) 0 unit 03/27/24 22:40 03/27/24 23:05 Heparin Sodium 1,000 Un/Ml (10ml Vl) IV 3,061.75 unit PER PROTOCOL PRN Administration Low PTT Protocol Heparin Sodium (Porcine) 10, 1,001 mls @ 999 mls/hr 03/28/24 07:00 000 unit/ Sodium Chloride IRRIGATION 03/28/24 23:00 ONCE PRN INTRA-OP Heparin Sodium (Porcine) 2,500 250.5 mls @ 250 mls/hr 03/28/24 07:00 unit/ Sodium Chloride IRRIGATION 03/28/24 23:00 ONCE PRN INTRA-OP Sodium Chloride 1,000 ml/ IV 1,000 mls @ 122.47 mls/hr 03/28/24 08:00 03/28/24 08:27 Solution IV 122.47 mls/hr .Q8H10M BABATUNDE Administration 1 ML/KG/HR Metoprolol Tartrate 25 mg 03/27/24 21:00 03/28/24 08:24 Metoprolol Tartrate 25 Mg Tab PO 25 mg BID BABATUNDE Administration Morphine Sulfate 4 mg 03/27/24 15:56 Morphine Sulfate 4 Mg/Ml Syringe IV Q4HR PRN Chest Pain Nitroglycerin 0.4 mg 03/28/24 07:58 Nitroglycerin Sl Tabs 0.4 Mg Tab SUBLINGUAL Q5M PRN Chest Pain Intake and Output 03/27/24 03/28/24 03/28/24 22:59 06:59 14:59 Intake Total 62.962 Balance 62.962 Intake: Intake, IV Titration 62.962 Amount Heparin Sod,Pork in 0.45% 62.962 NaCl 25,000 unit In 0.45 % NaCl 1 250ml.bag @ 8.16 UNITS/KG/HR 9.994 mls/hr IV .Q24H [facility] Rx#: [id number] Other: Voiding Method Toilet # Voids 1 3 Weight 122.47 kg 03/27/24 13:14 03/27/24 13:14
[2024-03-28] MEDS ORDERED: ASPIRIN 325 MG TAB PO SCH (09:00)
[2024-03-28] MEDS: ATORVASTATIN 80 MG TAB PO SCH (09:31)
[2024-03-28] MEDS: MIDAZOLAM 2 MG/2 ML VIAL IVP ONE ×2 (10:39→11:27)
[2024-03-28] MEDS: fentaNYL (PF) 50 MCG/1 ML VIAL IVP ONE (10:39)
[2024-03-28] MEDS: LIDOCAINE 1% INJ 10MG/ML (20 ML MDV) SQ ONE (10:41)
[2024-03-28] MEDS: IV FLUID CONTINUATION 1,000 ML IV ONE (10:44)
[2024-03-28] MEDS: HEPARIN SODIUM 1,000 UN/ML (10ML VL) IV ONE (10:53)
[2024-03-28 10:58] LABS: Chol/HDL Ratio 3.61 Ratio; LDL Cholesterol,Calculated 95.6 mg/dL (0.0-131.0)
[2024-03-28] MEDS: HEPARIN SODIUM,PORCINE 10,000 UNIT in SODIUM CHLORIDE 0.9% 1,000 ML IRRIGATION PRN (11:30)
[2024-03-28] MEDS: HEPARIN SODIUM,PORCINE (1 ML) 2,500 UNIT in SODIUM CHLORIDE 0.9% 250 ML IRRIGATION PRN (11:31)
[2024-03-28] MEDS: NITROGLYCERIN 1000MCG/10ML SYRINGE INTRACORON ONE (11:35)
--- NOTE | 2024-03-28 11:37 | CA ---
Transthoracic Echo Report Name: Jose Ramírez Age: 73 Gender: M : 1950 Exam Date: 03/28/2024 08:31 Exam Location: [facility] Ht (in): 66 Wt (lb): 270 Ordering Physician: Edison Simmons DO Attending/Referring Phys: [id number], [place] [employer] Electrician Nidia Long RDCS Procedure CPT: Indications: CP Cardiac Hx: Technical Quality: Fair Contrast 1: Total Dose (mL): Contrast 2: Total Dose (mL): MEASUREMENTS (Male / Female) Normal Values 2D ECHO LV Diastolic Diameter PLAX 4.7 cm 4.2 - 5.9 / 3.9 - 5.3 cm LV Systolic Diameter PLAX 2.9 cm IVS Diastolic Thickness 1.2 cm 0.6 - 1.0 / 0.6 - 0.9 cm LVPW Diastolic Thickness 1.3 cm 0.6 - 1.0 / 0.6 - 0.9 cm LV Relative Wall Thickness 0.5 RV Internal Dim ED PLAX 2.9 cm LA Systolic Diameter LX 4.6 cm 3.0 - 4.0 / 2.7 - 3.8 cm LV Diastolic Volume MOD BP 98.6 cm??? 67 - 155 / 56 - 104 cm??? LV Systolic Volume MOD BP 37.3 cm??? 22 - 58 / 19 - 49 cm??? LV Ejection Fraction MOD BP 62.1 % >= 55 % LV Cardiac Index MOD BP 2122.1 cm???/min???m??? LV Diastolic Volume MOD 4C 104.5 cm??? LV Systolic Volume MOD 4C 34.5 cm??? LV Ejection Fraction MOD 4C 67.0 % LV Cardiac Index MOD 4C 2425.2 cm???/min???m??? LV Diastolic Length 4C 8.1 cm LV Systolic Length 4C 6.2 cm LV Diastolic Volume MOD 2C 87.3 cm??? LV Systolic Volume MOD 2C 39.3 cm??? LV Ejection Fraction MOD 2C 55.0 % LV Cardiac Index MOD 2C 1662.2 cm???/min???m??? LV Diastolic Length 2C 7.6 cm LV Systolic Length 2C 6.4 cm M-MODE Aortic Root Diameter MM 3.6 cm LA Systolic Diameter MM 4.9 cm LA Ao Ratio MM 1.4 AV Cusp Separation MM 2.0 cm DOPPLER AV Peak Velocity 186.3 cm/s AV Peak Gradient 13.9 mmHg AI Peak Velocity 368.4 cm/s AI Peak Gradient 54.3 mmHg AI Pressure Half Time 857.0 ms Mitral E Point Velocity 80.3 cm/s Mitral A Point Velocity 86.6 cm/s Mitral E to A Ratio 0.9 MV Deceleration Time 304.0 ms MV E' Velocity 6.8 cm/s Mitral E to MV E' Ratio 11.8 TR Peak Velocity 210.8 cm/s TR Peak Gradient 17.8 mmHg Right Ventricular Systolic Press 27.8 mmHg FINDINGS Left Ventricle Left ventricular ejection fraction is estimated at 60-65 %. Mildly increased septal wall thickness. Normal left ventricular systolic function with no obvious regional wall motion abnormalities. Left ventricular cavity size normal. Right Ventricle Normal right ventricular size and function. Right ventricular systolic pressure within normal limits. Right Atrium Normal right atrial size. Left Atrium Mildly increased left atrial diameter. Mitral Valve Structurally normal mitral valve. Mild mitral regurgitation. No mitral stenosis. Aortic Valve Trileaflet aortic valve. No aortic stenosis. Mild aortic regurgitation. Tricuspid Valve Structurally normal tricuspid valve. Mild tricuspid regurgitation. No tricuspid regurgitation. Pulmonic Valve Structurally normal pulmonic valve. Trace pulmonic regurgitation. No pulmonic stenosis. Pericardium No pericardial or pleural effusion. Aorta Aorta at upper limits of normal. CONCLUSIONS Normal LV systolic function Mild mitral regurgitation Mild aortic regurgitation Previewed by: Dr. Ellis South MD (Electronically Signed) Final Date: 28 March 2024 11:36
[2024-03-28] MEDS: IOPAMIDOL-370 100ML BTL INJ ONE ×2 (11:49→12:27)
--- NOTE | 2024-03-28 12:13 | CC ---
CARDIAC CATHETERIZATION REPORT INDICATION: Unstable angina. PROCEDURE NOTE: After obtaining informed consent, left heart catheterization and coronary angiogram were performed via the right radial artery using standard Mallory catheters. The patient tolerated the procedure well without any obvious immediate complications. Right radial artery access was obtained using Seldinger technique, 6-Uzbek sheath was placed. Catheters and wires were floated into the ascending aorta under fluoroscopic guidance. The patient received verapamil and heparin per protocol. Total sedation time was 27 minutes. FINDINGS: 1. HEMODYNAMICS: Left ventricular end-diastolic pressure is 14 mm. There is no significant gradient across the aortic valve. 2. Left ventriculogram: Left ventriculogram was not performed. 3. ANGIOGRAPHIC DATA: a.Right coronary artery: Right coronary artery is a large dominant vessel, it shows diffuse mild to moderate nonobstructive disease with a patent stent within the PDA. b.Left main coronary artery appears calcified with mild nonobstructive plaque in the distal left main as it bifurcates into LAD and circumflex coronary artery. There is a 10% stenosis. c.Circumflex coronary artery was previously stented and the stent appears patent. LAD shows moderate diffuse disease, appears calcified and just proximal to the 2nd diagonal branch, there is a focal area of stenosis. At its worst, it seems to be a 70% stenosis. CONCLUSIONS: Three-vessel coronary artery disease with patent stents within the circ and right coronary artery with significant disease involving mid LAD just proximal to the diagonal branch that is new compared to the previous cardiac catheterization in 2020. PLAN: I am going to review angiographic data with Dr. James Her to perform the coronary intervention in the past, and decide on medical therapy revascularization. MMODL / IJN: [id number] /
[2024-03-28] MEDS: CLOPIDOGREL 75 MG TAB PO ONE (12:16)
[2024-03-28] MEDS: HYDROmorphone 0.5 MG/0.5 ML SYRINGE IVP ONE (12:18)
[2024-03-28] MEDS: CLOPIDOGREL 75 MG TAB PO SCH (12:40)
[2024-03-28] MEDS: EZETIMIBE 10 MG TAB PO SCH (12:44)
[2024-03-28] MEDS: TAMSULOSIN 0.4 MG CAP.ER.24H PO SCH (12:44)
[2024-03-28] MEDS: SODIUM CHLORIDE 0.9% 1,000 ML IV SCH (12:48)
[2024-03-28] MEDS: HYDROcodone/APAP 10-325MG 1 EACH TAB PO PRN (18:51)
--- NOTE | 2024-03-28 19:35 | P.HPIM ---
History of Present Illness H&P Date: 03/28/24 History of present illness; Patient is a 73-year-old male with history of CAD, multiple coronary stent placements who presents with chest tightness. Patient states chest tightness began Tuesday located substernally and has progressed since then. Patient was at rest when symptoms occurred. Tuesday evening he reports left-sided shoulder and jaw tightness lasting roughly 5 hours. With tightness patient took half his Imdur which improved his symptoms. Today his chest tightness has progressed. U teruses no other symptoms at this time including fever, chills, palpitations, diaphoresis, shortness of breath, abdominal pain. Labs completed in ER WBC 7.0 hemoglobin 15.6, platelets 215, APTT 39.1 => 50.6, sodium 142, potassium 4.0, bicarb 31, BUN 18, creatinine 1.23, glucose 101, troponin negative, pro BNP 21, lipase 98, lipid panel is WNL. EKG done in the ER independently interpreted showed sinus rhythm heart rate of 72, no ST segment elevation or depression seen, no T-wave inversions seen. Chest x-ray done independently interpreted in the ER showed no acute process. Spoke with the ER physician, patient admission was accepted by internal medicine service for treatment. REVIEW OF SYSTEMS: Pertinent positives and negatives noted in HPI. PHYSICAL EXAMINATION: Vitals reviewed GENERAL: No acute distress. Obese. HEENT: Pupils are round and equally reacting to light. EOMI. No scleral icterus. Normocephalic, atraumatic. CARDIOVASCULAR: S1 and S2 present. No murmurs, rubs, or gallops. PULMONARY: Chest is clear to auscultation, no wheezing, rhonchi, or crackles. ABDOMEN: Soft, nontender, nondistended, normoactive bowel sounds. No palpable organomegaly. MUSCULOSKELETAL: No apparent joint swelling and deformities. EXTREMITIES: No apparent cyanosis, clubbing, or pedal edema. NEUROLOGICAL: The patient is alert and oriented x3, Gross neurological examination did not reveal any focal deficits. SKIN: No apparent rashes. Assessment and plan Patient is a 73-year-old male with history of CAD, multiple coronary stent placements who presents with chest pain. #Chest pain, unstable angina #CAD with multiple previous stents -Troponin 2x negative continue cardiac monitoring - Lipid panel is WNL - Echocardiogram findings of normal LV systolic function, EF 60 to 65% - given aspirin 325, start 81mg qd Heparin infusion discontinued Cardiac catheterization with significant LAD stenosis 70% at worst. - Cardiology following Chronic Medical Conditions # Essential hypertension - Resume home medications #Coronary artery disease - Resume home Plavix, Aspirin - Resume home Statin - Resume home Metoprolol #BPH - Resume home Tamsulosin F: P.o. E: Replete as needed N: N.p.o. for now DVT ppx: Subcu Lovenox 40 mEq daily Code status: No code Anticipated discharge place: Home Anticipated discharge time: 2 to 3 days Dictation was produced using [employer] dictation software. Please excuse any gramma tical, word or spelling errors. Past Medical History Past Medical History: Hyperlipidemia, Hypertension, Myocardial Infarction ([place]) Additional Past Medical History / Comment(s): kidney stones, estrada leg pain Last Myocardial Infarction Date:: 2019 History of Any Multi-Drug Resistant Organisms: None Reported Past Surgical History: Heart Catheterization With Stent, Hernia Repair, Orthopedic Surgery Additional Past Surgical History / Comment(s): rt Knee replacement Past Anesthesia/Blood Transfusion Reactions: Previous Problems w/ Anesthesia Additional Past Anesthesia/Blood Transfusion Reaction / Comment(s): WOKE UP DURING A COUPLE SURGERIES Date of Last Stent Placement:: 10/16/19 Past Psychological History: No Psychological Hx Reported Smoking Status: Former smoker Past Alcohol Use History: Occasional Additional Past Alcohol Use History / Comment(s): QUIT SMOKING 1985, SMOKED ONE AND 1/2PPD FOR APPROX 6 YRS Past Drug Use History: None Reported - Past Family History Mother History Unknown: Yes Family Medical History: Cancer, CVA/TIA Additional Family Medical History / Comment(s): Colon cancer Father Family Medical History: Cancer, Myocardial Infarction ([place]) Additional Family Medical History / Comment(s): Brain cancer Sister(s) Family Medical History: Diabetes Mellitus Medications and Allergies Home Medications Medication Instructions Recorded Confirmed Type Zolpidem [Ambien] 10 mg PO HS PRN 03/19/16 03/27/24 History ALPRAZolam [Xanax] 1 mg PO BID PRN 10/15/19 03/27/24 History Metoprolol Succinate (ER) [Toprol 25 mg PO DAILY #30 tab.er.24h 10/17/19 03/27/24 Rx XL] Nitroglycerin Sl Tabs [Nitrostat] 0.4 mg SUBLINGUAL Q5M PRN tab 11/20/19 03/27/24 Rx Clopidogrel [Plavix] 75 mg PO DAILY 03/27/24 03/27/24 History Ezetimibe [Zetia] 10 mg PO DAILY 03/27/24 03/27/24 History HYDROcodone/APAP 10-325MG [[place] 1 tab PO Q6HR PRN 03/27/24 03/27/24 History 10-325] Tamsulosin [Flomax] 0.4 mg PO DAILY 03/27/24 03/27/24 History Triamterene/Hydrochlorothiazid 1 tab PO DAILY 03/27/24 03/27/24 History [Triamterene-Hctz 37.5-25 mg Tb] Allergies Allergy/AdvReac Type Severity Reaction Status Date / Time No Known Allergies Allergy Verified 03/27/24 16:56 Physical Exam Vitals: Vital Signs Temp Pulse Pulse Pulse Resp BP BP 03/28/24 07:00 98.1 F 65 18 160/84 03/28/24 02:00 97.5 F L 68 17 156/88 03/27/24 22:14 56 L 16 03/27/24 20:00 98.1 F 84 17 133/84 03/27/24 19:52 97.9 F 58 L 16 144/87 03/27/24 12:39 97.6 F 69 18 176/86 Pulse Ox 03/28/24 07:00 96 03/28/24 02:00 97 03/27/24 22:14 95 03/27/24 20:00 97 03/27/24 19:52 95 03/27/24 12:39 96 Intake and Output 03/27/24 03/28/24 03/28/24 22:59 06:59 14:59 Intake Total 62.962 Balance 62.962 Intake: Intake, IV Titration 62.962 Amount Heparin Sod,Pork in 0.45% 62.962 NaCl 25,000 unit In 0.45 % NaCl 1 250ml.bag @ 8.16 UNITS/KG/HR 9.994 mls/hr IV .Q24H [facility] Rx#: [id number] Other: Voiding Method Toilet # Voids 1 3 Weight 122.47 kg Results CBC & Chem 7: 03/28/24 04:15 03/27/24 13:14 Labs: Abnormal Lab Results - Last 24 Hours (Table) 03/27/24 03/27/24 03/28/24 Range/Units 13:14 21:52 04:15 APTT 39.1 H 52.1 H (22.0-30.0) sec Carbon Dioxide 31 H (22-30) mmol/L Glucose 101 H (74-99) mg/dL 03/28/24 Range/Units 07:18 APTT 50.6 H (22.0-30.0) sec Carbon Dioxide (22-30) mmol/L Glucose (74-99) mg/dL Thrombosis Risk Factor Assmnt - Choose All That Apply Each Factor Represents 1 point: Obesity (BMI >25) Each Risk Factor Represents 2 Points: Age 61-74 years Thrombosis Risk Factor Assessment Total Risk Factor Score: 3 Thrombosis Risk Factor Assessment Level: Moderate Risk
[2024-03-28] MEDS: LOSARTAN 25 MG TAB PO SCH (20:21)
--- NOTE | 2024-03-29 00:03 | CC ---
CARDIAC CATHETERIZATION REPORT PROCEDURES: 1. Percutaneous transluminal coronary angioplasty. 2. and stenting of mid left anterior descending with drug-eluting stent. 3. Post dilatation of left anterior descending stent with a 3.25 NC Trek balloon. 4. Shockwave lithotripsy of mid left anterior descending. 5. Instantaneous wave-free ratio assessment of mid left anterior descending. 6. Intravascular ultrasound of mid left anterior descending. PERFORMED BY: Dr. Mary Her. ANESTHESIA: Moderate conscious sedation time was 50 minutes. The patient was administered Versed and Dilaudid. Oxygen saturation, hemodynamics and EKG were monitored closely. CLINICAL INFORMATION: Mr. Jose Ramírez is a 73-year-old gentleman with a known history of CAD, hypertension, and hyperlipidemia. In 2019, I performed stenting of his circumflex marginal and also mid RCA and PLV branch of RCA. He presented with unstable angina type symptoms and Dr. South performed his cardiac cath from right radial approach, which revealed that the circumflex and RCA lesions were patent, but there was a moderately calcified mid LAD lesion after the origin of a septal branch before the origin of the major diagonal branch. He was advised PCI after IFR and I started to perform the procedure. PROCEDURE NOTE: I used an XB LAD 3.5 guide catheter to cannulate the left coronary artery. I used an MyPrepApp IFR wire and the wire was kept distally. After appropriate calibration and equalization, I have measured IFR in mid LAD and this was about 0.87, which was significant. I then proceeded to perform intervention. The same wire was used. A 2.5 caliber 6 mm long NC Trek balloon was used to pre-dilate the lesion. I then used a 12 mm long 3.0 caliber shock wave lithotripsy balloon and performed lithotripsy for two 10- second sessions. Subsequently, I deployed a 3.0 caliber 12 mm long Xience stent at 13 atmospheres. I performed intravascular ultrasound, which revealed that the stent was well apposed and the relative diameter was somewhat lower. I therefore went with a 3.25 caliber 12 mm NC Trek balloon and post dilated this up to 14 atmospheres. Excellent angiographic result was achieved without complication. The patient received intravenous heparin and his ACT initially was 232 and then went up to over 300. End of the procedure was 218. He received 600 mg of Plavix. He will be on aspirin and Plavix without interruption for 1 year. Excellent result was achieved. Results were discussed with the patient. No family was available. The sheath was taken out and the patient was sent to the room in a stable condition. Oxygen saturation in the right hand was about 94%. Excellent angiographic result without complication was achieved. The patient can be discharged later on today or tomorrow. BRYCE / REYNA: [id number] /
[2024-03-29 06:30] LABS: HCT 40.5 % (39.0-53.0); HGB 13.6 gm/dL (13.0-17.5); MCH 30.8 pg (25.0-35.0); MCHC 33.6 g/dL (31.0-37.0); MCV 91.6 fL (80.0-100.0); Mean Platelet Volume 7.4; Platelet Count 207 k/uL (150-450); RBC 4.42 m/uL (4.30-5.90); RDW 13.4 % (11.5-15.5); WBC 8.3 k/uL (3.8-10.6)
[2024-03-29 07:37] VITALS: BP 136/83; PULSE 58; RESP 16; TEMP 98.2
[2024-03-29 07:51] LABS: African American GFR (CKD) 69 (>60 ml/min/1.73 sqM); Anion Gap 6 mmol/L; Blood Urea Nitrogen 15 mg/dL (9-20); Calcium 8.3 mg/dL (8.4-10.2); Carbon Dioxide 30 mmol/L (22-30); Chloride 105 mmol/L (98-107); Glucose 113 mg/dL (74-99); Non-African American GFR(CKD) 60 (>60 ml/min/1.73 sqM); Potassium 3.7 mmol/L (3.5-5.1); Sodium 141 mmol/L (137-145)
[2024-03-29 08:37] LABS: Platelet Count 205 X 10*3/uL (140-440)
[2024-03-29] MEDS: ASPIRIN 81 MG PO SCH (08:48)
[2024-03-29] MEDS: ENOXAPARIN 40 MG/0.4 ML SYRINGE SQ SCH (08:49)
--- NOTE | 2024-03-29 09:51 | P.PN ---
Subjective HISTORY OF PRESENT ILLNESS: This is a 73-year-old male with a past medical history significant for coronary artery disease with previous stenting, hypertension, hyperlipidemia, and obesity. Patient follows in the office with Dr. Kay. We have been asked to see the patient in consultation for chest pain. Patient examined at the bedside. Patient presented to the hospital with a chief complaint of chest discomfort. Patient states he has been having chest pain with radiation to his jaw and to his left arm. He also reports associated shortness of breath. At the time of examination, the patient denies chest pain or pressure. Vital signs are stable. DIAGNOSTICS: - EKG reveals sinus mechanism with no signs of acute ischemia - Chest xray negative for acute process - Laboratory data: WBC 7.0. Hemoglobin 15.6. Platelet count 215. Sodium 142. Potassium 4.0. BUN 18. Creatinine 1.23. Magnesium 2.2. Troponin negative x 3. proBNP 21. - Current home cardiac medications include metoprolol succinate 25 mg daily, Plavix 75 mg daily, Zetia 10 mg daily - Patient underwent Lexiscan stress test in March 2022 which was negative for ischemia - Most recent echocardiogram obtained in 2019 reveals ejection fraction 55 to 60%, mild MR, mild TR - Cardiac catheterization history: November 2019 with stenting of the PLV branch of the RCA, mid RCA, and marginal branch 03/29/2024 Patient underwent cardiac catheterization yesterday with Dr. South. He underwent PCI of the LAD with Dr. Her. Patient examined this morning the bedside. P atient currently denies chest pain or pressure. He denies shortness of breath. Vital signs are stable. EKG repeated this morning with no signs of ischemia. Echocardiogram completed revealing ejection fraction 60 to 65%, mild MR, mild AR. PHYSICAL EXAM: VITAL SIGNS: Reviewed. GENERAL: Well-developed in no acute distress. HEENT: Head is normocephalic. Pupils are equal, round. Sclerae anicteric. Mucous membranes of the mouth are moist. Neck supple. No JVD or thyromegaly LUNGS: Respirations even and unlabored. Lungs essentially clear to auscultation bilaterally. HEART: Regular rate and rhythm. S1 and S2 heard. ABDOMEN: Soft. Nondistended. Nontender. EXTREMITIES: Normal range of motion. No clubbing or cyanosis. Peripheral pulses intact. No lower extremity edema NEUROLOGIC: Awake and alert. Oriented x 3. ASSESSMENT: Unstable angina, status post cardiac cath with stenting to the LAD Coronary artery disease with previous stenting of the circumflex and RCA Hypertension Hyperlipidemia with previous statin intolerance Morbid obesity: BMI 43.6 PLAN: Continue dual antiplatelet therapy with aspirin and Plavix for minimum of 12 months Continue high intensity statin. LDL goal less than 70. Continue additional cardiac medications Patient is stable for discharge home today from a cardiac standpoint Patient to follow-up postdischarge with Dr. Kay Nurse practitioner note has been reviewed by physician. Signing provider agrees with the documented findings, assessment, and plan of care documented by [employer] as a scribe. Objective - Vital Signs Vital signs: Vital Signs Temp 98.2 F 03/29/24 07:15 Pulse 58 L 03/29/24 07:15 Resp 16 03/29/24 07:15 BP 136/83 03/29/24 07:15 Pulse Ox 94 L 03/29/24 07:15 FiO2 Intake & Output 03/28/24 03/29/24 03/29/24 18:59 06:59 18:59 Intake Total 570 118 Balance 570 118 Intake: IV 570 Oral 118 Other: Voiding Method Toilet # Voids 1 3 - Labs CBC & Chem 7: 03/29/24 06:11 03/29/24 06:11 Labs: Abnormal Lab Results - Last 24 Hours (Table) 03/29/24 Range/Units 06:11 Glucose 113 H (74-99) mg/dL Calcium 8.3 L (8.4-10.2) mg/dL
--- NOTE | 2024-03-29 14:39 | P.DS ---
Providers Date of admission: 03/27/24 15:57 Expected date of discharge: 03/29/24 Attending physician: Raleigh Alaniz Consults: 03/27/24 15:56 Consult Physician Urgent Consulting Provider: Kajal Foote Consult Reason/Comments: cp Do you want consulting provider notified?: Yes Primary care physician: Isauro Duarte Hospital Course: Discharge diagnoses; #Chest pain, unstable angina #CAD with multiple previous stents #LAD stenosis, with stent placement # Essential hypertension #Coronary artery disease #BPH Hospital course; Patient is stable on clear for discharge to home. He will need to continue aspirin and Plavix for 1 year without interruption. 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 Patient is a 73-year-old male with history of CAD, multiple coronary stent placements who presents with chest tightness. Patient states chest tightness began Tuesday located substernally and has progressed since then. Patient was at rest when symptoms occurred. Tuesday evening he reports left-sided shoulder and jaw tightness lasting roughly 5 hours. With tightness patient took half his Imdur which improved his symptoms. Today his chest tightness has progressed. Uteruses no other symptoms at this time including fever, chills, palpitations, diaphoresis, shortness of breath, abdominal pain. Labs completed in ER WBC 7.0 hemoglobin 15.6, platelets 215, APTT 39.1 => 50.6, sodium 142, potassium 4.0, bicarb 31, BUN 18, creatinine 1.23, glucose 101, troponin negative, pro BNP 21, lipase 98, lipid panel is WNL. EKG done in the ER independently interpreted showed sinus rhythm heart rate of 72, no ST segment elevation or depression seen, no T-wave inversions seen. Chest x-ray done independently interpreted in the ER showed no acute process. During hospital course patient had catheterization with significant LAD stenosis 70% at worst, echo with normal LV systolic function, EF 60 to 65%. Patient underwent cardiac catheterization with Dr. South. He underwent PCI of the LAD with Dr. Her. Repeat EKG showed no signs of ischemia. PHYSICAL EXAMINATION: Vitals reviewed GENERAL: No acute distress. Obese. HEENT: Pupils are round and equally reacting to light. EOMI. No scleral icterus. Normocephalic, atraumatic. CARDIOVASCULAR: S1 and S2 present. No murmurs, rubs, or gallops. PULMONARY: Chest is clear to auscultation, no wheezing, rhonchi, or crackles. ABDOMEN: Soft, nontender, nondistended, normoactive bowel sounds. No palpable organomegaly. MUSCULOSKELETAL: No apparent joint swelling and deformities. EXTREMITIES: No apparent cyanosis, clubbing, or pedal edema. NEUROLOGICAL: The patient is alert and oriented x3, Gross neurological examination did not reveal any focal deficits. SKIN: No apparent rashes. Dictation was produced using [employer] dictation software. please excuse any grammatical, word or spelling errors. Patient Condition at Discharge: Stable Plan - Discharge Summary Discharge Rx Participant: No New Discharge Prescriptions: New Atorvastatin [Lipitor] 80 mg PO DAILY #90 tab Aspirin 81 mg PO DAILY #90 tab Losartan [Cozaar] 25 mg PO HS #90 tab Metoprolol Tartrate [Lopressor] 25 mg PO BID #180 tab Continue ALPRAZolam [Xanax] 1 mg PO BID PRN PRN Reason: anxiety/sleep Nitroglycerin Sl Tabs [Nitrostat] 0.4 mg SUBLINGUAL Q5M PRN tab PRN Reason: Chest Pain Tamsulosin [Flomax] 0.4 mg PO DAILY Triamterene/Hydrochlorothiazid [Triamterene-Hctz 37.5-25 mg Tb] 1 tab PO DAILY HYDROcodone/APAP 10-325MG [[place] 10-325] 1 tab PO Q6HR PRN PRN Reason: Moderate Pain (Scale 4 To 6) Ezetimibe [Zetia] 10 mg PO DAILY Clopidogrel [Plavix] 75 mg PO DAILY Discontinued Zolpidem [Ambien] 10 mg PO HS PRN PRN Reason: Insomnia Metoprolol Succinate (ER) [Toprol XL] 25 mg PO DAILY #30 tab.er.24h Discharge Medication List ALPRAZolam [Xanax] 1 mg PO BID PRN 10/15/19 [History] Nitroglycerin Sl Tabs [Nitrostat] 0.4 mg SUBLINGUAL Q5M PRN tab 11/20/19 [Rx] Clopidogrel [Plavix] 75 mg PO DAILY 03/27/24 [History] Ezetimibe [Zetia] 10 mg PO DAILY 03/27/24 [History] HYDROcodone/APAP 10-325MG [[place] 10-325] 1 tab PO Q6HR PRN 03/27/24 [History] Tamsulosin [Flomax] 0.4 mg PO DAILY 03/27/24 [History] Triamterene/Hydrochlorothiazid [Triamterene-Hctz 37.5-25 mg Tb] 1 tab PO DAILY 03/27/24 [History] Aspirin 81 mg PO DAILY #90 tab 03/29/24 [Rx] Atorvastatin [Lipitor] 80 mg PO DAILY #90 tab 03/29/24 [Rx] Losartan [Cozaar] 25 mg PO HS #90 tab 03/29/24 [Rx] Metoprolol Tartrate [Lopressor] 25 mg PO BID #180 tab 03/29/24 [Rx] Follow up Appointment(s)/Referral(s): Drake Kay MD [STAFF PHYSICIAN] - 04/09/24 8:45 am (Appointment will be at the main office.) Isauro Duarte [Primary Care Provider] - 1-2 days Patient Instructions/Handouts: *Surgery [facility] - After Heart Catheterization - Manager Supply Instructions Activity/Diet/Wound Care/Special Instructions: DO NOT SUBMERGE RIGHT WRIST IN WATER FOR 5 DAYS; NO TUBS, POOLS, DISHWATER, ETC NO BENDING OR FLEXING THE WRIST FOR 5 DAYS OR LIFTING >5LBS FOR 5 DAYS IF YOU NOTICE ANY BLEEDING, SWELLING, INCREASED PAIN, APPLY FIRM PRESSURE AND GO TO NEAREST ER FOLLOW UP IN THE OFFICE FOR A SITE CHECK IN ONE WEEK Discharge Disposition: HOME SELF-CARE
== END 2024-03-29 12:40 | disposition home or self-care (01) ==
LOC: EC 12:36 → 6NMEDSUR 15:57
PROVIDERS: ADMIT Hospitalist; ATTEND Hospitalist
DX: I25.110 Atherosclerotic heart disease of native coronary artery with unstable angina pectoris (principal); I10 Essential (primary) hypertension; E78.5 Hyperlipidemia, unspecified; N40.0 Benign prostatic hyperplasia without lower urinary tract symptoms; I25.2 Old myocardial infarction; E66.01 Morbid (severe) obesity due to excess calories; Z68.41 Body mass index [BMI] 40.0-44.9, adult; Z87.891 Personal history of nicotine dependence; Z95.5 Presence of coronary angioplasty implant and graft; Z79.02 Long term (current) use of antithrombotics/antiplatelets; Z79.82 Long term (current) use of aspirin; Z79.899 Other long term (current) drug therapy; Z82.49 Family history of ischemic heart disease and other diseases of the circulatory system
CPT/HCPCS: 96366 ×3; 96372; 96376; 96365; 99291; 36415; 93005; 93306; 92978; 93458; 93799; 92972; 83880; 80061; 80053; 80048; 83690; 83735; 84484; 85025; 85027; 85049 ×2; 85610; 85730 ×2; 71046; G0378 ×3; C9600; J2250; J1644 ×5; J2003; J1650; J1171; Q9967; J3010; J2305